=== PATIENT | female | born 1965 | race Caucasian/White ===

== ENCOUNTER 2022-08-22 20:44 | Inpatient (IN) | payer BC ==
--- OUTSIDE RECORDS SUMMARY | 2022-08-22 20:49 | XMS REPORT | Continuity of Care Document ---
:1965 Author Organization [facility] t Address [address] [place] [address] Care Team Providers Name Role Phone Dayan Dial MD Primary Care Physician [phone] [place] Attending Clinician Unavailable Lab, Ang - Db Attending Clinician Unavailable Dayan Dial MD Attending Clinician DAYAN DIAL Attending Clinician Unavailable [place] MD Attending Clinician Ca Graff Attending Clinician Payers Payer Name Policy Type Policy Number Effective Date Expiration Date S ource Problems Condition Condition Condition Status Onset Resolution Last Treating Co mments Source Name Details Category Date Date Treatment Clinician Date Nausea Nausea Disease Active Univers 9-13 ity of 00:00: [place] 00 Medical Branch Wheezing Wheezing Disease Active Unive rs 9-13 ity of 00:00: [place] 00 Medical Branch Cough Cough Disease Active Univers 9-13 ity of 00:00: [place] 00 Medical Branch Rectal Rectal Disease Active Overview: Univer s bleeding bleeding 8-24 Formattin ity of 00:00: g of this [place] 00 note Medical might be Branch different from the original. Added automatic ally from request for surgery [id number] Encounter Encounter Disease Active Overview: Univers for for - Formattin ity of screening screening 00:00: [place] colonoscop colonoscop 00 note Me dical y y might be Branch different from the original. 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 Branch Arteritis Arteritis Disease Active 2012-11 Uni vers 18 ity of 00:00: [place] [facility] Branch No known No known Disease Metho di active active st problems problems Hospit a l Bronchitis Bronchitis Disease Resolve 2014-112018-02-16 2018-02-17 Univers d 2- 00:00:00 02:26:46 ity of 00:00: [place] [facility] Branch Acute Acute Disease Resolve 2014-112018-02-16 2018-02-17 Univers sinusitis, sinusitis, d 2-21 00:00:00 02:26:38 [place] recurrence [place] 00 Medical specified, specified, Br anch unspecifie unspecifie d location d location Allergies, Adverse Reactions, Alerts Allergy Allergy Status Severity Reaction(s) Onset Inactive Treating Comm ents Source Name Type Date Date Clinician No Known DA Active U [facility] Allergie 5-03 Marlynlan s 00:00: d 00 Medical Senath NO KNOWN Drug Active Univers ALLERGIE Class ity of S [facility] Family History Family Member Diagnosis Comments Start Date Stop Date Source Natural brother Thyroid cancer [facility] Natural father Bladder Cancer Method ist [facility] mother [facility] Natural sister [facility] Social History Social Habit Start Date Stop Date Quantity Comments Source Exposure to 2022-08-07 2022-08-17 Not sure University SARS-CoV-2 (event) 00:00:00 08:56:00 [facility] Tobacco use and 2022-08-17 2022-08-17 Smokeless tobacco Un iversity of exposure 00:00:00 00:00:00 non-user [facility] Cigarettes smoked 2022-08-17 2022-08-17 Univers ity of current (pack per 00:00:00 00:00:00 ) - Reported Branch Cigarette 2022-08-17 2022-08-17 University of pack-years 00:00:00 00:00:00 [facility] Tobacco Comment 2022-06-17 2022-06-17 Occasional smoker Un iversity of 00:00:00 00:00:00 [facility] Alcohol intake 2018-08-09 2018-08-09 Current [facility] 00:[facility] 00:[facility]:00 non-drinker of Hospital alcohol (finding) History of tobacco 2012-08-24 Cigarette Smoker University of use 00:00:00 [facility] Sex Ass[birth year] At [birth year] [facility] Smoking Status Start Date Stop Date Source Smokes tobacco daily 2022-08-17 00:00:00 Univers ity of [facility] Ex-smoker 2022-06-17 00:00:00 2022-06-17 00:00:00 Universi ty of [facility] Medications Ordered Filled Start Stop Current Ordering Indication Dosage Frequency Signature Comments Components Source Medication Medication Date Date Medication? Clinician (SIG) Name Name linaCLOtide Yes [id number] 145ug Take 1 Univers (LINZESS) 9-22 capsule by ity of 145 mcg 00:00: mouth in [place] capsule 00 the Medical morning. Branch linaCLOtide Yes [id number] 145ug Take 1 Univers (LINZESS) 9-22 capsule by ity of 145 mcg 00:00: mouth in [place] capsule the Medical morning. Branch linaCLOtide Yes [id number] 145ug Take 1 Univers (LINZESS) 9-22 capsule by ity of 145 mcg 00:00: mouth in [place] capsule the Medical morning. Branch linaCLOtide Yes [id number] 145ug Take 1 Univers (LINZESS) 9-22 capsule by ity of 145 mcg 00:00: mouth in [place] capsule 00 the Medical morning. Branch linaCLOtide Yes [id number] 145ug Take 1 Univers (LINZESS) 9-22 capsule by ity of 145 mcg 00:00: mouth in [place] capsule 00 the Medical morning. Branch linaCLOtide Yes [id number] 145ug Take 1 Univers (LINZESS) 9-22 capsule by ity of 145 mcg 00:00: mouth in [place] capsule 00 the Medical morning. Branch linaCLOtide Yes [id number] 145ug Take 1 Univers (LINZESS) 9-22 capsule by ity of 145 mcg 00:00: mouth in [place] capsule 00 the Medical morning. Branch VENLAFAXINE Yes [id number] TAKE 1 Univers XR 150 mg 9-21 CAPSULE BY ity of 24 hr 00:00: MOUTH ONCE [place] capsule 00 DAILY WITH Medica l BREAKFAST Branch ESTRADIOL 1 Yes [id number] Take 1 Univers mg tablet 9-21 tablet by ity o f 00:00: mouth once [place] 00 daily Medical Branch NAPROXEN 2021-0 Yes [id number] Take 1 Uni vers 500 mg 9-21 tablet by ity of tablet 00:00: mouth 00 twice Medical daily Branch VENLAFAXINE Yes [id number] TAKE 1 Univers XR 150 mg 9-21 CAPSULE BY ity of 24 hr 00:00: MOUTH ONCE [place] capsule 00 DAILY WITH Medica l BREAKFAST Branch ESTRADIOL 1 Yes [id number] Take 1 Univers mg tablet 9-21 tablet by ity o f 00:00: mouth once [place] 00 daily Medical Branch NAPROXEN 2021-0 Yes [id number] Take 1 Uni vers 500 mg 9-21 tablet by ity of tablet 00:00: mouth 00 twice Medical daily Branch VENLAFAXINE 2021-0 Yes [id number] TAKE 1 Univers XR 150 mg 9-21 CAPSULE BY ity of 24 hr 00:00: MOUTH ONCE [place] capsule 00 DAILY WITH Medica l BREAKFAST Branch ESTRADIOL 1 2021- Yes [id number] Take 1 Univers mg tablet 9-21 tablet by ity o f 00:00: mouth once [place] 00 daily Medical Branch NAPROXEN 2021-0 Yes [id number] Take 1 Uni vers 500 mg 9-21 tablet by ity of tablet 00:00: mouth [place] 00 twice Medical daily Branch VENLAFAXINE 2021-0 Yes [id number] TAKE 1 Univers XR 150 mg 9-21 CAPSULE BY ity of 24 hr 00:00: MOUTH ONCE [place] capsule 00 DAILY WITH Medica l BREAKFAST Branch ESTRADIOL 1 2021-0 Yes [id number] Take 1 Univers mg tablet 9-21 tablet by ity o f 00:00: mouth once [place] daily Medical Branch NAPROXEN 2021-0 Yes [id number] Take 1 Uni vers 500 mg 9-21 tablet by ity of tablet 00:00: mouth twice Medical daily Branch VENLAFAXINE 2021-0 Yes [id number] TAKE 1 Univers XR 150 mg 9-21 CAPSULE BY ity of 24 hr 00:00: MOUTH ONCE [place] capsule 00 DAILY WITH [facility] ESTRADIOL 1 2021-0 Yes [id number] Take 1 Univers mg tablet 9-21 tablet by ity o f 00:00: mouth once daily Medical Branch NAPROXEN 2021-0 Yes [id number] Take 1 Uni vers 500 mg 9-21 tablet by ity of tablet 00:00: mouth twice Medical daily Branch VENLAFAXINE 2021-0 Yes [id number] TAKE 1 Univers XR 150 mg 9-21 CAPSULE BY ity of 24 hr 00:00: MOUTH ONCE [place] 00 DAILY WITH [facility] ESTRADIOL 1 2021-0 Yes [id number] Take 1 Univers mg tablet 9-21 tablet by ity o f 00:00: mouth once daily Medical Branch NAPROXEN 2021-0 Yes [id number] Take 1 Uni vers 500 mg 9-21 tablet by ity of tablet 00:00: mouth twice Medical daily Branch VENLAFAXINE 2021-0 Yes [id number] TAKE 1 Univers XR 150 mg 9-21 CAPSULE BY ity of 24 hr 00:00: MOUTH ONCE [place] 00 DAILY WITH [facility] ESTRADIOL 1 2021-0 Yes [id number] Take 1 Univers mg tablet 9-21 tablet by ity o f 00:00: mouth once daily Medical Branch NAPROXEN 2021-0 Yes [id number] Take 1 Uni vers 500 mg 9-21 tablet by ity of tablet 00:00: mouth twice Medical daily Branch VENLAFAXINE 2021-0 Yes [id number] TAKE 1 Univers XR 150 mg 9-21 CAPSULE BY ity of 24 hr 00:00: MOUTH ONCE [place] capsule 00 DAILY WITH [facility] ESTRADIOL 1 2021-0 Yes [id number] Take 1 Univers mg tablet 9-21 tablet by ity o f 00:00: mouth once [place] 00 daily Medical Branch NAPROXEN 2021-0 Yes [id number] Take 1 Uni vers 500 mg 9-21 tablet by ity of tablet 00:00: mouth [place] 00 twice Medical daily Branch azithromyci 2021-0 Yes [id number] Z-Ady = Univers n 250 mg 9-13 500mg day ity of tablet 00:00: 1, then [place] 00 250mg days Medical 2 to 5. Branch albuterol Yes [id number] 2{puff} Inhale 2 Univers 90 9-13 Puffs ity of mcg/actuati 00:00: every 6 [place] as on inhaler 00 (six) Medical hours as Branch needed for Wheezing or Shortness of Breath. azithromyci Yes [id number] Z-Ady = Univers n 250 mg 9-13 500mg day ity of tablet 00:00: 1, then [place] 00 250mg days Medical 2 to 5. Branch albuterol Yes [id number] 2{puff} Inhale 2 Univers 90 9-13 Puffs ity of mcg/actuati 00:00: every 6 [place] as on inhaler 00 (six) Medical hours as Branch needed for Wheezing or Shortness of Breath. azithromyci Yes [id number] Z-Ady = Univers n 250 mg 9-13 500mg day ity of tablet 00:00: 1, then [place] 00 250mg days Medical 2 to 5. Branch albuterol 2021- Yes [id number] 2{puff} Inhale 2 Univers 90 9-13 Puffs ity of mcg/actuati 00:00: every 6 [place] as on inhaler 00 (six) Medical hours as Branch needed for Wheezing or Shortness of Breath. azithromyci 2021- Yes [id number] Z-Ady = Univers n 250 mg 9-13 500mg day ity of tablet 00:00: 1, then [place] 00 250mg days Medical 2 to 5. Branch albuterol 2021-0 Yes [id number] 2{puff} Inhale 2 Univers 90 9-13 Puffs ity of mcg/actuati 00:00: every 6 [place] on inhaler 00 (six) Medical hours as Branch needed for Wheezing or Shortness of Breath. azithromyci 2021-0 Yes [id number] Z-Ady = Univers n 250 mg 9-13 500mg day ity of tablet 00:00: 1, then [place] 00 250mg days Medical 2 to 5. Branch albuterol 2021-0 Yes [id number] 2{puff} Inhale 2 Univers 90 9-13 Puffs ity of mcg/actuati 00:00: every 6 [place] as on inhaler 00 (six) Medical hours as Branch needed for Wheezing or Shortness of Breath. azithromyci 2021- Yes [id number] Z-Ady = Univers n 250 mg 9-13 500mg day ity of tablet 00:00: 1, then [place] 00 250mg days Medical 2 to 5. Branch albuterol 2021- Yes [id number] 2{puff} Inhale 2 Univers 90 9-13 Puffs ity of mcg/actuati 00:00: every 6 [place] as on inhaler 00 (six) Medical hours as Branch needed for Wheezing or Shortness of Breath. azithromyci 2021- Yes [id number] Z-Ady = Univers n 250 mg 9-13 500mg day ity of tablet 00:00: 1, then [place] 00 250mg days Medical 2 to 5. Branch albuterol 2021- Yes [id number] 2{puff} Inhale 2 Univers 90 9-13 Puffs ity of mcg/actuati 00:00: every 6 [place] as on inhaler 00 (six) Medical hours as Branch needed for Wheezing or Shortness of Breath. azithromyci 2021- Yes [id number] Z-Ady = Univers n 250 mg 9-13 500mg day ity of tablet 00:00: 1, then [place] 00 250mg days Medical 2 to 5. Branch albuterol 2021-0 Yes [id number] 2{puff} Inhale 2 Univers 90 9-13 Puffs ity of mcg/actuati 00:00: every 6 [place] as on inhaler 00 (six) Medical hours as Branch needed for Wheezing or Shortness of Breath. azithromyci 2021- Yes [id number] Z-Ady = Univers n 250 mg 9-13 500mg day ity of tablet 00:00: 1, then [place] 00 250mg days Medical 2 to 5. Branch albuterol 2021-0 Yes [id number] 2{puff} Inhale 2 Univers 90 9-13 Puffs ity of mcg/actuati 00:00: every 6 [place] on inhaler 00 (six) Medical hours as Branch needed for Wheezing or Shortness of Breath. azithromyci Yes [id number] Z-Ady = Univers n 250 mg 9-13 500mg day ity of tablet 00:00: 1, then [place] 00 250mg days Medical 2 to 5. Branch albuterol Yes [id number] 2{puff} Inhale 2 Univers 90 9-13 Puffs ity of mcg/actuati 00:00: every 6 [place] as on inhaler 00 (six) Medical hours as Branch needed for Wheezing or Shortness of Breath. bromphenira 2021- Yes [id number] 10mL Take 10 mL Univers mine-pseudo 08-03 by mouth 4 i ty of ephedrine-D 00:00: 04:59 (four) [place] M (BROMFED 00 :00 times Medical DM) 2-30-10 daily as Bran ch mg/5 mL needed for syrup Congestion /Allergies for up to 10 days. ondansetron 2021- Yes [id number] 4mg Take 1 Univers (ZOFRAN) 4 08-03 tablet by ity of mg tablet 00:00: 04:59 mouth [place] 00 :00 every 8 Medical (eight) Branch hours as needed for Nausea and Vomiting (N/V) for up to 10 days. bromphenira 2021- Yes [id number] 10mL Take 10 mL Univers mine-pseudo 08-03 by mouth 4 i ty of ephedrine-D 00:00: 04:59 (four) [place] M (BROMFED 00 :00 times Medical DM) 2-30-10 daily as Bran ch mg/5 mL needed for syrup Congestion /Allergies for up to 10 days. ondansetron 2021- Yes [id number] 4mg Take 1 Univers (ZOFRAN) 4 08-03 tablet by ity of mg tablet 00:00: 04:59 mouth [place] 00 :00 every 8 Medical (eight) Branch hours as needed for Nausea and Vomiting (N/V) for up to 10 days. bromphenira 2021- Yes [id number] 10mL Take 10 mL Univers mine-pseudo 08-03 by mouth 4 i ty of ephedrine-D 00:00: 04:59 (four) [place] M (BROMFED 00 :00 times Medical DM) 2-30-10 daily as Bran ch mg/5 mL needed for syrup Congestion /Allergies for up to 10 days. ondansetron 2021- Yes [id number] 4mg Take 1 Univers (ZOFRAN) 4 08-03 tablet by ity of mg tablet 00:00: 04:59 mouth [place] 00 :00 every 8 Medical (eight) Branch hours as needed for Nausea and Vomiting (N/V) for up to 10 days. bromphenira 2021- Yes [id number] 10mL Take 10 mL Univers mine-pseudo 08-03 by mouth 4 i ty of ephedrine-D 00:00: 04:59 (four) [place] M (BROMFED 00 :00 times Medical DM) 2-30-10 daily as Bran ch mg/5 mL needed for syrup Congestion /Allergies for up to 10 days. ondansetron 2021- Yes [id number] 4mg Take 1 Univers (ZOFRAN) 4 08-03 tablet by ity of mg tablet 00:00: 04:59 mouth [place] 00 :00 every 8 Medical (eight) Branch hours as needed for Nausea and Vomiting (N/V) for up to 10 days. bromphenira 2021- Yes [id number] 10mL Take 10 mL Univers mine-pseudo 08-03 by mouth 4 i ty of ephedrine-D 00:00: 04:59 (four) [place] M (BROMFED 00 :00 times Medical DM) 2-30-10 daily as Bran ch mg/5 mL needed for syrup Congestion /Allergies for up to 10 days. ondansetron 2021-2021- Yes [id number] 4mg Take 1 Univers (ZOFRAN) 4 08-03 tablet by ity of mg tablet 00:00: 04:59 mouth [place] 00 :00 every 8 Medical (eight) Branch hours as needed for Nausea and Vomiting (N/V) for up to 10 days. bromphenira 2021- Yes [id number] 10mL Take 10 mL Univers mine-pseudo 08-03 by mouth 4 i ty of ephedrine-D 00:00: 04:59 (four) [place] M (BROMFED 00 :00 times Medical DM) 2-30-10 daily as Bran ch mg/5 mL needed for syrup Congestion /Allergies for up to 10 days. ondansetron 2021- Yes [id number] 4mg Take 1 Univers (ZOFRAN) 4 08-03 tablet by ity of mg tablet 00:00: 04:59 mouth [place] 00 :00 every 8 Medical (eight) Branch hours as needed for Nausea and Vomiting (N/V) for up to 10 days. ketorolac 2021- Yes [id number] 10mg Take 1 U nivers 10 mg 07-28 tablet by ity of tablet 00:00: 04:59 mouth [place] 00 :00 every 6 Medical (six) Branch hours as needed for Alternate with [place] for pain scale 1-3 for up to 14 days. docusate 2021- Yes [id number] 100mg Take 1 U nivers 100 mg 07-28 capsule by ity of capsule 00:00: 04:59 mouth in [place] 00 :00 the Medical morning Branch for 14 days. proMETHazin 2021- Yes [id number] 25mg Take 1 Univers e 25 mg 07-28 tablet by ity of tablet 00:00: 04:59 mouth [place] 00 :00 every 6 Medical (six) Branch hours as needed for Nausea and Vomiting (N/V) for up to 14 days. ketorolac 2021- Yes [id number] 10mg Take 1 U nivers 10 mg 07-28 tablet by ity of tablet 00:00: 04:59 mouth [place] 00 :00 every 6 Medical (six) Branch hours as needed for Alternate with [place] for pain scale 1-3 for up to 14 days. docusate 2021- Yes [id number] 100mg Take 1 U nivers 100 mg 07-28 capsule by ity of capsule 00:00: 04:59 mouth in [place] 00 :00 the Medical morning Branch for 14 days. proMETHazin 2021- Yes [id number] 25mg Take 1 Univers e 25 mg 07-28 tablet by ity of tablet 00:00: 04:59 mouth [place] 00 :00 every 6 Medical (six) Branch hours as needed for Nausea and Vomiting (N/V) for up to 14 days. ketorolac 2021- Yes [id number] 10mg Take 1 U nivers 10 mg 07-28 tablet by ity of tablet 00:00: 04:59 mouth [place] 00 :00 every 6 Medical (six) Branch hours as needed for Alternate with [place] for pain scale 1-3 for up to 14 days. docusate 2021- Yes [id number] 100mg Take 1 U nivers 100 mg 07-28 capsule by ity of capsule 00:00: 04:59 mouth in [place] 00 :00 the Medical morning Branch for 14 days. proMETHazin 2021- Yes [id number] 25mg Take 1 Univers e 25 mg 07-28 tablet by ity of tablet 00:00: 04:59 mouth [place] 00 :00 every 6 Medical (six) Branch hours as needed for Nausea and Vomiting (N/V) for up to 14 days. HYDROcodone 2021- Yes [id number] 2{tbl} Take 2 U nivers -acetaminop 07-28-15 tablets by i ty of hen (NORCO) 00:00: 04:59 [place] 5-325 mg 00 :00 every 6 Medical tablet (six) Branch hours as needed for Pain (scale 7-10) for up to 7 days. Indication s: acute pain HYDROcodone 2021- Yes [id number] 2{tbl} Take 2 U nivers -acetaminop 07-28-15 tablets by i ty of hen (NORCO) 00:00: 04:59 mouth [place] 5-325 mg 00 :00 every 6 Medical tablet (six) Branch hours as needed for Pain (scale 7-10) for up to 7 days. Indication s: acute pain NAPROXEN Yes [id number] Take 1 Uni vers 500 mg 8-23 tablet by ity of tablet 00:00: mouth [place] 00 twice Medical daily Branch linaCLOtide Yes [id number] 145ug Take 1 Univers (LINZESS) 8-23 capsule by ity of 145 mcg 00:00: mouth in [place] capsule 00 the Medical morning. Branch NAPROXEN 2021-0 Yes [id number] Take 1 Uni vers 500 mg 8-23 tablet by ity of tablet 00:00: mouth [place] 00 twice Medical daily Branch linaCLOtide 2021-0 Yes [id number] 145ug Take 1 Univers (LINZESS) 8-23 capsule by ity of 145 mcg 00:00: mouth in [place] capsule 00 the Medical morning. Branch linaCLOtide 2021-0 Yes [id number] 145ug Take 1 Univers (LINZESS) 8-23 capsule by ity of 145 mcg 00:00: mouth in [place] capsule 00 the Medical morning. Branch linaCLOtide 2021-0 Yes [id number] 145ug Take 1 Univers (LINZESS) 8-23 capsule by ity of 145 mcg 00:00: mouth in [place] capsule 00 the Medical morning. Branch linaCLOtide 2021-0 Yes [id number] 145ug Take 1 Univers (LINZESS) 8-23 capsule by ity of 145 mcg 00:00: mouth in [place] capsule 00 the Medical morning. Branch linaCLOtide 2021-0 Yes [id number] 145ug Take 1 Univers (LINZESS) 8-23 capsule by ity of 145 mcg 00:00: mouth in [place] capsule 00 the Medical morning. Branch linaCLOtide 2021-0 Yes [id number] 145ug Take 1 Univers (LINZESS) 8-23 capsule by ity of 145 mcg 00:00: mouth in [place] capsule 00 the Medical morning. Branch linaCLOtide 2021-0 Yes [id number] 145ug Take 1 Univers (LINZESS) 8-23 capsule by ity of 145 mcg 00:00: mouth in [place] capsule 00 the Medical morning. Branch linaCLOtide 2021-0 Yes [id number] 145ug Take 1 Univers (LINZESS) 8-23 capsule by ity of 145 mcg 00:00: mouth in [place] capsule 00 the Medical morning. Branch linaCLOtide 2021-0 Yes [id number] 145ug Take 1 Univers (LINZESS) 8-23 capsule by ity of 145 mcg 00:00: mouth in [place] capsule 00 the Medical morning. Branch NAPROXEN 2021-0 2021- No [id number] Take 1 Un ger[place] 500 mg 8-23 -21 tablet by ity of tablet 00:00: 00:00 mouth 00 :00 twice Medical daily Branch ALPRAZOLAM 0 Yes [id number] TAKE 1 U nivers 0.5 mg 8-17 TABLET BY ity of tablet 00:00: MOUTH THREE Medical TIMES Branch DAILY ALPRAZOLAM 0 Yes [id number] TAKE 1 U nivers 0.5 mg 8-17 TABLET BY ity of tablet 00:00: THREE Medical TIMES Branch DAILY ALPRAZOLAM 0 Yes [id number] TAKE 1 U nivers 0.5 mg 8-17 TABLET BY ity of tablet 00:00: MOUTH THREE Medical TIMES Branch DAILY ALPRAZOLAM Yes [id number] TAKE 1 U nivers 0.5 mg 8-17 TABLET BY ity of tablet 00:00: MOUTH THREE Medical TIMES Branch DAILY ALPRAZOLAM 0 Yes [id number] TAKE 1 U nivers 0.5 mg 8-17 TABLET BY ity of tablet 00:00: THREE Medical TIMES Branch DAILY ALPRAZOLAM 0 Yes [id number] TAKE 1 U nivers 0.5 mg 8-17 TABLET BY ity of tablet 00:00: MOUTH THREE Medical TIMES Branch DAILY ALPRAZOLAM 0 Yes [id number] TAKE 1 U nivers 0.5 mg 8-17 TABLET BY ity of tablet 00:00: MOUTH THREE Medical TIMES Branch DAILY ALPRAZOLAM 0 Yes [id number] TAKE 1 U nivers 0.5 mg 8-17 TABLET BY ity of tablet 00:00: THREE Medical TIMES Branch DAILY ALPRAZOLAM 0 Yes [id number] TAKE 1 U nivers 0.5 mg 8-17 TABLET BY ity of tablet 00:00: MOUTH THREE Medical TIMES Branch DAILY ALPRAZOLAM 0 Yes [id number] TAKE 1 U nivers 0.5 mg 8-17 TABLET BY ity of tablet 00:00: MOUTH THREE Medical TIMES Branch DAILY EUTHYROX 25 2021-0 Yes [id number] TAKE 1 Univers mcg tablet 7-12 TABLET BY ity of 00:00: MOUTH 00 DAILY IN Medical THE Branch MORNING EUTHYROX 25 2021-0 Yes [id number] TAKE 1 Univers mcg tablet 7-12 TABLET BY ity of 00:00: MOUTH ONCE [place] 00 DAILY IN [facility] MORNING EUTHYROX 25 2021-0 Yes [id number] TAKE 1 Univers mcg tablet 7-12 TABLET BY ity of 00:00: MOUTH ONCE [place] 00 DAILY IN [facility] MORNING EUTHYROX 25 2021-0 Yes [id number] TAKE 1 Univers mcg tablet 7-12 TABLET BY ity of 00:00: MOUTH ONCE [place] 00 DAILY IN [facility] MORNING EUTHYROX 25 2021-0 Yes [id number] TAKE 1 Univers mcg tablet 7-12 TABLET BY ity of 00:00: MOUTH ONCE [place] 00 DAILY IN [facility] MORNING EUTHYROX 25 2021-0 Yes [id number] TAKE 1 Univers mcg tablet 7-12 TABLET BY ity of 00:00: MOUTH ONCE [place] 00 DAILY IN [facility] MORNING EUTHYROX 25 2021-0 Yes [id number] TAKE 1 Univers mcg tablet 7-12 TABLET BY ity of 00:00: MOUTH ONCE [place] 00 DAILY IN [facility] MORNING EUTHYROX 25 2021-0 Yes [id number] TAKE 1 Univers mcg tablet 7-12 TABLET BY ity of 00:00: MOUTH ONCE [place] 00 DAILY IN [facility] MORNING EUTHYROX 25 2021-0 Yes [id number] TAKE 1 Univers mcg tablet 7-12 TABLET BY ity of 00:00: MOUTH ONCE [place] 00 DAILY IN [facility] MORNING EUTHYROX 25 2021-0 Yes [id number] TAKE 1 Univers mcg tablet 7-12 TABLET BY ity of 00:00: MOUTH ONCE [place] 00 DAILY IN [facility] MORNING VENLAFAXINE 2021-0 Yes [id number] TAKE 1 Univers XR 150 mg 6-27 CAPSULE BY ity of 24 hr 00:00: MOUTH ONCE [place] capsule 00 DAILY WITH Medica l BREAKFAST [place] ESTRADIOL 1 2021-0 Yes [id number] Take 1 Univers mg tablet 6-27 tablet by ity o f 00:00: mouth once [place] 00 daily [facility] VENLAFAXINE 2021-0 Yes [id number] TAKE 1 Univers XR 150 mg 6-27 CAPSULE BY ity of 24 hr 00:00: MOUTH ONCE [place] capsule 00 DAILY WITH Medica l BREAKFAST [place] ESTRADIOL 1 2021-0 Yes [id number] Take 1 Univers mg tablet 6-27 tablet by ity o f 00:00: mouth once [place] 00 daily [facility] VENLAFAXINE 2021-0 2021- No [id number] TAKE 1 Univers XR 150 mg 05-17 CAPSULE BY ity of 24 hr 00:00: 00:00 MOUTH ONCE [place] capsule 00 :00 DAILY WITH Medica l BREAKFAST Branch ESTRADIOL 1 2021- No [id number] Take 1 Univers mg tablet 05-17 tablet by ity of 00:00: 00:00 mouth once [place] 00 :00 daily Medical Branch lisinopriL 0 Yes [id number] 40mg Take 1 U nivers 40 mg 3-09 tablet by ity of tablet 00:00: mouth [place] 00 daily. Medical Branch lisinopriL 0 Yes [id number] 40mg Take 1 U nivers 40 mg 3-09 tablet by ity of tablet 00:00: mouth [place] 00 daily. Medical Branch lisinopriL 0 Yes [id number] 40mg Take 1 U nivers 40 mg 3-09 tablet by ity of tablet 00:00: mouth [place] 00 daily. Medical Branch lisinopriL 0 Yes [id number] 40mg Take 1 U nivers 40 mg 3-09 tablet by ity of tablet 00:00: mouth [place] 00 daily. Medical Branch lisinopriL 0 Yes [id number] 40mg Take 1 U nivers 40 mg 3-09 tablet by ity of tablet 00:00: mouth [place] 00 daily. Medical Branch lisinopriL 0 Yes [id number] 40mg Take 1 U nivers 40 mg 3-09 tablet by ity of tablet 00:00: mouth [place] 00 daily. [facility] Branch lisinopriL 0 Yes [id number] 40mg Take 1 U nivers 40 mg 3-09 tablet by ity of tablet 00:00: mouth [place] 00 daily. Medical Branch lisinopriL 0 Yes [id number] 40mg Take 1 U nivers 40 mg 3-09 tablet by ity of tablet 00:00: mouth [place] 00 daily. Medical Branch lisinopriL 2021-0 Yes [id number] 40mg Take 1 U nivers 40 mg 3-09 tablet by ity of tablet 00:00: mouth [place] 00 daily. Medical Branch lisinopriL 2021-0 Yes [id number] 40mg Take 1 U nivers 40 mg 3-09 tablet by ity of tablet 00:00: mouth [place] 00 daily. Medical Branch azithromyci Yes Cough 500mg Take 1 Un gerardo n 500 mg 5-07 tablet by ity of tablet 00:00: mouth [place] 00 daily. Medical Branch azithromyci Yes Cough 500mg Take 1 Un gerardo n 500 mg 5-07 tablet by ity of tablet 00:00: mouth [place] 00 daily. Medical Branch levothyroxi Yes Hypothyroid 25ug Take 1 Univers ne 25 mcg 3-16 ism, tablet by ity o f tablet 00:00: unspecified mouth Berny as 00 type every Medical morning. Branch ALPRAZolam Yes Anxiety TAKE 1 Un gerardo 0.5 mg 3-16 TABLET BY ity of tablet 00:00: MOUTH [place] 00 THREE Medical TIMES Branch DAILY estradioL 1 Yes Menopausal 1mg Take 1 Univers mg tablet 3-16 state tablet by ity of 00:00: mouth [place] 00 daily. Medical Branch venlafaxine Yes Depression, TAKE 1 Univers XR 150 mg 3-16 unspecified CAPSULE BY ity of 24 hr 00:00: depression MOUTH ONCE [place] capsule 00 type DAILY WITH Medica l BREAKFAST Branch naproxen Yes Neck pain 500mg Take 1 U nivers 500 mg 3-16 tablet by ity of tablet 00:00: mouth 2 (two) Medical times Branch daily. levothyroxi Yes Hypothyroid 25ug Take 1 Univers ne 25 mcg 3-16 ism, tablet by ity o f tablet 00:00: unspecified mouth Berny as 00 type every Medical morning. Branch ALPRAZolam Yes Anxiety TAKE 1 Un gerardo 0.5 mg 3-16 TABLET BY ity of tablet 00:00: MOUTH [place] 00 THREE Medical TIMES Branch DAILY estradioL 1 Yes Menopausal 1mg Take 1 Univers mg tablet 3-16 state tablet by ity of 00:00: mouth [place] 00 daily. Medical Branch venlafaxine Yes Depression, TAKE 1 Univers XR 150 mg 3-16 unspecified CAPSULE BY ity of 24 hr 00:00: depression MOUTH ONCE [place] capsule 00 type DAILY WITH Medica l BREAKFAST Branch naproxen Yes Neck pain 500mg Take 1 U nivers 500 mg 3-16 tablet by ity of tablet 00:00: mouth 2 [place] 00 (two) Medical times Branch daily. naproxen 2018-0 Yes 500mg Q.5D Take 500 Meth humble (NAPROSYN) 9-[address] 500 MG 13:48: mouth 2 Hosp[facility] tablet 54 (two) l times a day with meals. levothyroxi 2018-0 Yes 25ug QD Take 25 Met hodi ne 9-[address] (SYNTHROID, 13:48: mouth Hospi ta LEVOXYL) 25 54 every l mcg tablet morning. traMADol 2017- Yes 50mg Q6H Take 50 mg Met hodi (ULTRAM) 50 -[address] mg tablet 13:48: every 6 Hospi ta 54 (six) l hours as needed for moderate pain. citalopram Yes 10mg QD Take 10 mg M ethodi (CeleXA) 10 08-[address] MG tablet 13:48: daily. Hospit [facility] 54 l Immunizations Ordered Filled Immunization Date Status Comments [facility] Immunization Name Name Zoster(Zostavax)( 2021-10-20 Completed Unive rsity of ingles) 00:00:00 [facility] Zoster(Zostavax)( 2021-10-20 Completed Unive rsity of ingles) 00:00:00 [facility] Zoster(Zostavax)( 2021-10-20 Completed Unive rsity of ingles) 00:00:00 [facility] Zoster(Zostavax)( 2021-10-20 Completed Unive rsity of ingles) 00:00:00 [facility] Zoster(Zostavax)( 2021-10-20 Completed Unive rsity of ingles) 00:00:00 [facility] Zoster(Zostavax)( 2021-10-20 Completed Unive rsity of ingles) 00:00:00 [facility] Zoster(Zostavax)( 2021-10-20 Completed Unive rsity of ingles) 00:00:00 [facility] Zoster(Zostavax)( 2021-10-20 Completed Unive rsity of ingles) 00:00:00 [facility] Zoster(Zostavax)( 2021-10-20 Completed Unive rsity of ingles) 00:00:00 [facility] Zoster(Zostavax)(Sh 2021-10-20 Completed Unive rsity of ingles) 00:00:00 [facility] SARS-COV-2 COVID-19 2021-03-04 Completed Unive rsity of PFIZER VACCINE 00:00:00 [facility] [place] [facility] SARS-COV-2 COVID-19 2021-03-04 Completed Unive rsity of PFIZER VACCINE 00:00:00 [facility] [place] [facility] SARS-COV-2 COVID-19 2021-03-04 Completed Unive rsity of PFIZER VACCINE 00:00:00 [facility] [place] [facility] SARS-COV-2 COVID-19 2021-03-04 Completed Unive rsity of PFIZER VACCINE 00:00:00 [facility] Branch SARS-COV-2 COVID-19 2021-03-04 Completed Unive rsity of PFIZER VACCINE 00:00:00 [facility] [place] [facility] SARS-COV-2 COVID-19 2021-03-04 Completed Unive rsity of PFIZER VACCINE 00:00:00 [facility] [place] [facility] SARS-COV-2 COVID-19 2021-03-04 Completed Unive rsity of PFIZER VACCINE 00:00:00 [facility] [place] [facility] SARS-COV-2 COVID-19 2021-03-04 Completed Unive rsity of PFIZER VACCINE 00:00:00 [facility] Branch SARS-COV-2 COVID-19 2021-03-04 Completed Unive rsity of PFIZER VACCINE 00:00:00 [facility] [place] [facility] SARS-COV-2 COVID-19 2021-03-04 Completed Unive rsity of PFIZER VACCINE 00:00:00 [facility] [place] [facility] SARS-COV-2 COVID-19 2021-03-04 Completed Unive rsity of PFIZER VACCINE 00:00:00 [facility] [place] [facility] SARS-COV-2 COVID-19 2021-03-04 Completed Unive rsity of PFIZER VACCINE 00:00:00 [facility] [place] [facility] SARS-COV-2 COVID-19 2021-02-05 Completed Unive rsity of PFIZER VACCINE 00:00:00 [facility] [place] [facility] SARS-COV-2 COVID-19 2021-02-05 Completed Unive rsity of PFIZER VACCINE 00:00:00 [facility] [place] [facility] SARS-COV-2 COVID-19 2021-02-05 Completed Unive rsity of PFIZER VACCINE 00:00:00 [facility] [place] [facility] SARS-COV-2 COVID-19 2021-02-05 Completed Unive rsity of PFIZER VACCINE 00:00:00 [facility] [place] [facility] SARS-COV-2 COVID-19 2021-02-05 Completed Unive rsity of PFIZER VACCINE 00:00:00 [facility] [place] [facility] SARS-COV-2 COVID-19 2021-02-05 Completed Unive rsity of PFIZER VACCINE 00:00:00 [facility] [place] [facility] SARS-COV-2 COVID-19 2021-02-05 Completed Unive rsity of PFIZER VACCINE 00:00:00 [facility] [place] [facility] SARS-COV-2 COVID-19 2021-02-05 Completed Unive rsity of PFIZER VACCINE 00:00:00 [facility] [place] [facility] SARS-COV-2 COVID-19 2021-02-05 Completed Unive rsity of PFIZER VACCINE 00:00:00 [facility] [place] [facility] SARS-COV-2 COVID-19 2021-02-05 Completed Unive rsity of PFIZER VACCINE 00:00:00 [facility] [place] [facility] SARS-COV-2 COVID-19 2021-02-05 Completed Unive rsity of PFIZER VACCINE 00:00:00 [facility] [place] [facility] SARS-COV-2 COVID-19 2021-02-05 Completed Unive rsity of PFIZER VACCINE 00:00:00 [facility] [place] [facility] Zoster Vaccine 2020-09-12 Completed University of Recombinant 00:00:00 [facility] Influenza Virus 2020-09-12 Completed Universit y of Vaccine Recomb Quad 00:00:00 [place] [facility] IM, Preserv and ABX Branc h Free 18-64 YRS Zoster Vaccine 2020-09-12 Completed University of Recombinant 00:00:00 [facility] Influenza Virus 2020-09-12 Completed Universit y of Vaccine Recomb Quad 00:00:00 [place] [facility] IM, Preserv and ABX Branc h Free 18-64 YRS Zoster Vaccine 2020-09-12 Completed University of Recombinant 00:00:00 [facility] Influenza Virus 2020-09-12 Completed Universit y of Vaccine Recomb Quad 00:00:00 [place] [facility] IM, Preserv and ABX Branc h Free 18-64 YRS Zoster Vaccine 2020-09-12 Completed University of Recombinant 00:00:00 [facility] Influenza Virus 2020-09-12 Completed Universit y of Vaccine Recomb Quad 00:00:00 [place] [facility] IM, Preserv and ABX Branc h Free 18-64 YRS Zoster Vaccine 2020-09-12 Completed University of Recombinant 00:00:00 [facility] Influenza Virus 2020-09-12 Completed Universit y of Vaccine Recomb Quad 00:00:00 [place] [facility] IM, Preserv and ABX Branc h Free 18-64 YRS Zoster Vaccine 2020-09-12 Completed University of Recombinant 00:00:00 [facility] Influenza Virus 2020-09-12 Completed Universit y of Vaccine Recomb Quad 00:00:00 [place] [facility] IM, Preserv and ABX Branc h Free 18-64 YRS Zoster Vaccine 2020-09-12 Completed University of Recombinant 00:00:00 [facility] Influenza Virus 2020-09-12 Completed Universit y of Vaccine Recomb Quad 00:00:00 [place] [facility] IM, Preserv and ABX Branc h Free 18-64 YRS Zoster Vaccine 2020-09-12 Completed University of Recombinant 00:00:00 [facility] Influenza Virus 2020-09-12 Completed Universit y of Vaccine Recomb Quad 00:00:00 [place] [facility] IM, Preserv and ABX Branc h Free 18-64 YRS Zoster Vaccine 2020-09-12 Completed University of Recombinant 00:00:00 [facility] Influenza Virus 2020-09-12 Completed Universit y of Vaccine Recomb Quad 00:00:00 [place] [facility] IM, Preserv and ABX Branc h Free 18-64 YRS Zoster Vaccine 2020-09-12 Completed University of Recombinant 00:00:00 [facility] Influenza Virus 2020-09-12 Completed Universit y of Vaccine Recomb Quad 00:00:00 [place] [facility] IM, Preserv and ABX Branc h Free 18-64 YRS Vital Signs Vital Name Observation Time Observation Value Comments Source Systolic blood 2022-08-17 14:04:00 122 mm[Hg] Univer sity of pressure [facility] Diastolic blood 2022-08-17 14:04:00 64 mm[Hg] Unive rsity of pressure [facility] Heart rate 2022-08-17 14:04:00 78 /min [facility] Body temperature 2022-08-17 14:04:00 [facility] 2022-08-17 14:04:00 180.3 cm [facility] Body weight 2022-08-17 14:04:00 81.647 kg [facility] [place] [facility] BMI 2022-08-17 14:04:00 25.10 kg/m2 [facility] [place] [facility] Systolic blood 2022-08-12 20:44:00 120 mm[Hg] Univer sity of pressure [place] [facility] Diastolic blood 2022-08-12 20:44:00 64 mm[Hg] Unive rsity of pressure [facility] Heart rate 2022-08-12 20:44:00 79 /min [facility] [place] [facility] Body height 2022-08-12 20:44:00 180.3 cm [facility] [place] [facility] Body weight 2022-08-12 20:44:00 80.922 kg [facility] [place] [facility] BMI 2022-08-12 20:44:00 24.88 kg/m2 [facility] [place] [facility] Oxygen saturation in 2022-08-12 20:44:00 99 /min University of Arterial blood by [employer] Pulse oximetry Branch Systolic blood 2022-08-03 20:39:00 121 mm[Hg] Univer sity of pressure [place] [facility] Diastolic blood 2022-08-03 20:39:00 64 mm[Hg] Unive rsity of pressure [facility] Heart rate 2022-08-03 20:39:00 67 /min [facility] [place] [facility] Body temperature 2022-08-03 20:39:00 37.06 Darleen Univ ersity of [facility] Body height 2022-08-03 20:39:00 180.3 cm [facility] [place] [facility] Body weight 2022-08-03 20:39:00 82.509 kg [facility] [place] [facility] BMI 2022-08-03 20:39:00 25.37 kg/m2 [facility] [place] [facility] Oxygen saturation in 2022-08-03 20:39:00 100 /min University of Arterial blood by [employer] Pulse oximetry Branch Procedures This patient has no known procedures. Plan of Care Planned Activity Planned Date Details Comments Source Future Scheduled 2029-02-02 Screening for [facility] [place] Test 00:00:00 malignant neoplasm of Medica l Branch colon (procedure) [code = 057114020] Future Scheduled 2029-02-02 Screening for [facility] [place] Test 00:00:00 malignant neoplasm of Medica l Branch colon (procedure) [code = 088615086] Future Scheduled 2029-02-02 Screening for [facility] Test 00:00:00 malignant neoplasm of Medica l Branch colon (procedure) [code = 812560804] Future Scheduled 2029-02-02 Screening for [facility] Test 00:00:00 malignant neoplasm of Medica l Branch colon (procedure) [code = 717538513] Future Scheduled 2022-07-27 HEPATITIS B VACCINES Met [facility] Test 13:11:17 (1 of 3 - 3-dose series) [code = HEPATITIS B VACCINES (1 of 3 - 3-dose series)] Future Scheduled 2022-07-27 COVID-19 VACCINE (#1) [facility] Test 13:11:17 [code = COVID-19 VACCINE (#1)] Future Scheduled 2022-07-27 Screening for [facility] Test 13:11:17 malignant neoplasm of cervix (procedure) [code = 413372871] Future Scheduled 2022-07-27 BREAST CANCER [facility] Test 13:11:17 SCREENING [code = BREAST CANCER SCREENING] Future Scheduled 2022-07-27 COLONOSCOPY SCREENING [facility] Test 13:11:17 [code = COLONOSCOPY SCREENING] Future Scheduled 2022-07-27 SHINGLES VACCINES (1 Met [facility] Test 13:11:17 of 2) [code = SHINGLES VACCINES (1 of 2)] Future Scheduled 2022-07-27 INFLUENZA VACCINE Method [facility] Test 13:11:17 [code = INFLUENZA VACCINE] Future Scheduled 2021-07-22 INFLUENZA VACCINE [facility] Test 00:00:00 (Season Ended) [code = Medic al Branch INFLUENZA VACCINE (Season Ended)] Future Scheduled 2021-07-22 [facility] (Season Ended) [code = Medic al Branch INFLUENZA VACCINE (Season Ended)] Future Scheduled 2019-08-16 Screening for [facility] Test 00:00:00 malignant neoplasm of Medica l Branch breast (procedure) [code = 168158576] Future Scheduled 2019-08-16 Screening for [facility] Test 00:00:00 malignant neoplasm of Medica l Branch breast (procedure) [code = 810021360] Future Scheduled 2018 Screening for University [facility] Test 00:00:00 malignant neoplasm of Medica l Branch lung (procedure) [code = 076762284] Future Scheduled 2018 Screening for University [facility] Test 00:00:00 malignant neoplasm of Medica l Branch lung (procedure) [code = 346194353] Future Scheduled 2013 Screening for occult [facility] [place] Test 00:00:00 blood in feces Medical Branc h (procedure) [code = 775073147] Future Scheduled 2013 Stool DNA-based Universi ty [facility] Test 00:00:00 colorectal cancer Medical Br anch screening (procedure) [code = 661618807061536] Future Scheduled 2013 [facility] sigmoidoscopy Medical Branch (procedure) [code = 31341140] Future Scheduled 2013 [facility] Vaccine (SHINGRIX) (1 Medica l Branch of 2) [code = Zoster Recombinant Vaccine (SHINGRIX) (1 of 2)] Future Scheduled 2013 Screening for occult [facility] [place] Test 00:00:00 blood in feces Medical Branc h (procedure) [code = 501276918] Future Scheduled 2013 [facility] Test 00:00:00 colorectal cancer Medical Br anch screening (procedure) [code = 358479553560509] Future Scheduled 2013 [facility]ible fiberoptic [facility]:00 sigmoidoscopy Medical Branch (procedure) [code = 10887619] Future Scheduled 2013 Zoster Recombinant Unive rsity [facility] Test 00:00:00 Vaccine (SHINGRIX) (1 Medica l Branch of 2) [code = Zoster Recombinant Vaccine (SHINGRIX) (1 of 2)] Future Scheduled 1984 Screening for [facility] Test 00:00:00 malignant neoplasm of Medica l Branch cervix (procedure) [code = 522949884] Future Scheduled 1984 Screening for [facility] Test 00:00:00 malignant neoplasm of Medica l Branch cervix (procedure) [code = 648763865] Future Scheduled 1982 DTaP,Tdap,and Td Univers ity [facility] Test 00:00:00 Vaccines (1 - Tdap) Medical Branch [code = DTaP,Tdap,and Td Vaccines (1 - Tdap)] Future Scheduled 1982 DTaP,Tdap,and Td [facility] [place] Test 00:00:00 Vaccines (1 - Tdap) Medical Branch [code = DTaP,Tdap,and Td Vaccines (1 - Tdap)] Future Scheduled 1981 Hepatitis C screening [facility] [place] Test 00:00:00 (procedure) [code = Medical Branch 460182967] Future Scheduled 1981 Hepatitis C screening [facility] [place] Test 00:00:00 (procedure) [code = Medical Branch 805702130] Future Scheduled 1975 Depression screening [facility] [place] Test 00:00:00 (procedure) [code = Medical Branch 196696394] Future Scheduled 1975 Depression screening [facility] [place] Test 00:00:00 (procedure) [code = Medical Branch 982492013] Encounters Start End Encounter Admission Attending Care Care Encounter Source Date/Time Date/Time Type Type Clinicians Facility Department ID 2022-08-18 2022-08-18 [facility], Ang - [facility] [id number] Univers 08:45:00 08:45:47 Visit Dayan Dial [facility] [id number] Kathy [id number] Berny as JOSEPH?BLEA [phone] [place] gerald [address] MEDICAL OFFICE BUILDING 2022-08-18 2022-08-18 Outpatient Libby DIAL [facility] [id number] Univers 08:45:00 08:45:00 DAYAN sandoval [facility] [place] [facility] 2022-08-17 2022-08-17 Outpatient Libby DIAL [facility] [id number] Univers 09:15:00 09:50:05 DAYAN [facility] 2022-08-17 2022-08-17 Office Claude [facility] [id number] Univers 09:15:00 09:50:05 Visit [facility] [id number] it y of [place] [id number] Berny as JOSEPH?BLEA [id number] [address] OFFICE [facility] 2022-08-17 2022-08-17 [facility] [id number] Univers 09:15:00 09:15:00 DAYAN [id number] [facility] 2022-08-12 2022-08-12 [facility] [id number] Univers 15:30:00 16:11:42 INES [facility] 2022-08-12 2022-08-12 [facility] [id number] Univers 15:30:00 16:11:42 Visit Ines BANDAR [id number] i [place] [id number] [place] [phone] [place] stephanie[address] 2022-08-11 2022-08-11 [facility] [id number] Univers 00:00:00 00:00:00 [facility] [id number] it y of [place] [id number] Berny as JOSEPH?BLEA [id number] [address] OFFICE [facility] 2022-08-03 2022-08-03 Office [facility] [id number] Univers 15:30:00 16:00:00 Visit Ca [facility] [id number] it y of [place] [id number] Berny as JOSEPH?BLEA [id number] [address] OFFICE [facility] Results This patient has no known results.
[2022-08-22 21:21] LABS: Urine Blood Trace-intact (Negative); Urine Glucose Negative (Negative); Urine Protein Trace (Negative)
[2022-08-22 21:31] LABS: Absolute Lymphocytes (CBC) 1.8 K/uL (0.7-4.9); Hematocrit 41.3 % (36.0-45.0); Lymphocytes % 13.9 % (15.3-44.8); MCV 92.4 fL (80-100); MPV 8.9 fL (7.6-11.3); RBC Red Blood Cell Count 4.47 M/uL (3.86-4.86)
[2022-08-22 21:57] LABS: Alkaline Phosphatase 277 U/L (45-117); BUN Blood Urea Nitrogen 20 mg/dL (7-18); Bicarbonate 33 mmol/L (21-32); Bilirubin Total 0.7 mg/dL (0.2-1.0); Glomerular Filtration Rate 62 ml/min (=/>90); Glucose Level 134 mg/dL (74-106); Lipase 183 U/L (73-393); Potassium 4.2 mmol/L (3.5-5.1); Protein, Total 7.7 g/dL (6.4-8.2); Sodium Level 141 mmol/L (136-145)
[2022-08-22 22:02] LABS: ALT/SGPT 548 U/L (12-78); AST/SGOT 966 U/L (15-37)
[2022-08-22] MEDS ORDERED: NA CHLORIDE 0.9% 500 ML ONE (22:06)
[2022-08-22] MEDS ORDERED: ONDANSETRON 4 MG/2 ML VIAL ONE (22:06)
[2022-08-22] MEDS ORDERED: MORPHINE 4 MG/ML SYR ONE (22:06)
[2022-08-22] MEDS ORDERED: FAMOTIDINE 20 MG/2 ML VIAL IV ONE (22:06)
--- NOTE | 2022-08-22 22:35 | RAD REPORT ---
EXAM DESCRIPTION: CTAbdomen Pelvis W Contrast - 08/22/2022 10:20 pm CLINICAL HISTORY: Abdominal pain. Abdominal pain, acute, nonlocalized COMPARISON: <Comparisons> TECHNIQUE: Biphasic CT imaging of the abdomen and pelvis was performed with 100 ml non-ionic IV cont rast. All CT scans are performed using dose optimization technique as appropriate and may include automated exposure control or mA/KV adjustment according to patient size. FINDINGS: The lung bases are clear. The liver, spleen, adrenal glands and kidneys are within normal limits. Slight edematous appearance t o the pancreatic tail. Punctate right renal calculus without hydronephrosis. Benign right renal cyst. No bowel obstruction, free air, free fluid or abscess. Mild sigmoid diverticulosis. The appendix is n ormal. No evidence of significant lymphadenopathy. No suspicious bony findings. IMPRESSION: Slight edematous appearance to the pancreatic tail could indicate pancreatitis. Advise c orrelation with amylase/ lipase levels.
--- NOTE | 2022-08-22 23:09 | RAD REPORT ---
EXAM DESCRIPTION: US - Abdomen Exam Limited - 08/22/2022 10:57 pm CLINICAL HISTORY: ABD PAIN COMPARISON: No comparisons FINDINGS: The gallbladder demonstrates extensive stones and sludge. Gallbladder appears dilated. No pericholecystic fluid or gallbladder wall thickening. The common bile duct is mildly prominent measur ing 6-7 mm.. The liver demonstrates no findings of intrahepatic biliary dilatation. IMPRESSION: Extensive small gallstones and sludge noted with a distended gallbladder. Common bile duct is mildly prominent. MRCP would be useful for further evaluation of the biliary tree .
--- NOTE | 2022-08-22 23:54 | EDPHYS ---
Physician Documentation [facility] Name: Samara Alex Age: 57 yrs Sex: Female : 1965 Arrival Date: 08/22/2022 Time: 20:47 Bed 25 Private MD: ED Physician Loyd Cabral HPI: 08/22 23:54 This 57 yrs old Female presents to ER via Ambulatory with complaints of Abdominal Pain, kdr Nausea. 23:54 The patient presents to the emergency department with nausea, that is moderate. Onset: kdr The symptoms/episode began/occurred suddenly, today, 4 hour(s) ago. Possible causes: unknown. The symptoms are aggravated by nothing. The symptoms are alleviated by nothing. Associated signs and symptoms: Pertinent positives: abdominal pain, nausea, Pertinent negatives: constipation, diarrhea, dysuria, fever, vomiting. Severity of symptoms: At their worst the symptoms were mild moderate in the emergency department the symptoms are unchanged. The patient has not experienced similar symptoms in the past. The patient has not recently seen a physician. Historical: - Allergies: 20:57 No Known Allergies; vc1 - Home Meds: 20:57 Linzess oral [Active]; Lisinopril Oral [Active]; Estradiol Oral [Active]; levothyroxine vc1 oral [Active]; - PMHx: 20:57 Hypertensive disorder; vc1 - PSHx: 20:57 hysterectomy; vc1 - Immunization history:: Adult Immunizations up to date, Client reports receiving the 2nd dose of the Covid vaccine. - Social history:: Smoking status: Patient reports the use of cigarette tobacco products, less than a pack. ROS: 23:54 Constitutional: Negative for fever, chills, and weight loss, Eyes: Negative for injury, kdr pain, redness, and discharge, ENT: Negative for injury, pain, and discharge, Neck: Negative for injury, pain, and swelling, Cardiovascular: Negative for chest pain, palpitations, and edema, Respiratory: Negative for shortness of breath, cough, wheezing, and pleuritic chest pain, Back: Negative for injury and pain, : Negative for injury, bleeding, discharge, and swelling, MS/Extremity: Negative for injury and deformity, Skin: Negative for injury, rash, and discoloration, Neuro: Negative for headache, weakness, numbness, tingling, and seizure activity. Psych: Negative for depression, anxiety, suicide ideation, homicidal ideation, and hallucinations, Allergy/Immunology: Negative for hives, rash, and allergies, Endocrine: Negative for neck swelling, polydipsia, polyuria, polyphagia, and marked weight changes, Hematologic/Lymphatic: Negative for swollen nodes, abnormal bleeding, and unusual bruising. 23:54 Abdomen/GI: Positive for abdominal pain, nausea, Negative for vomiting. Exam: 23:54 Constitutional: This is a well developed, well nourished patient who is awake, alert, kdr and in moderate distress. Head/Face: Normocephalic, atraumatic. Eyes: Pupils equal round and reactive to light, extra-ocular motions intact. Lids and lashes normal. Conjunctiva and sclera are non-icteric and not injected. Cornea within normal limits. Periorbital areas with no swelling, redness, or edema. Neck: Trachea midline, no thyromegaly or masses palpated, and no cervical lymphadenopathy. Supple, full range of motion without nuchal rigidity, or vertebral point tenderness. No Meningismus. Chest/axilla: Normal chest wall appearance and motion. Nontender with no deformity. No lesions are appreciated. Cardiovascular: Regular rate and rhythm with a normal S1 and S2. No gallops, murmurs, or rubs. Normal PMI, no JVD. No pulse deficits. Respiratory: Lungs have equal breath sounds bilaterally, clear to auscultation and percussion. No rales, rhonchi or wheezes noted. No increased work of breathing, no retractions or nasal flaring. Back: No spinal tenderness. No costovertebral tenderness. Full range of motion. Skin: Warm, dry with normal turgor. Normal color with no rashes, no lesions, and no evidence of cellulitis. MS/ Extremity: Pulses equal, no cyanosis. Neurovascular intact. Full, normal range of motion. Neuro: Awake and alert, GCS 15, oriented to person, place, time, and situation. Cranial nerves II-XII grossly intact. Motor strength 5/5 in all extremities. Sensory grossly intact. Cerebellar exam normal. Normal gait. Psych: Awake, alert, with orientation to person, place and time. Behavior, mood, and affect are within normal limits. 23:54 Abdomen/GI: Inspection: abdomen appears normal, Bowel sounds: diminished, in all quadrants, Palpation: moderate abdominal tenderness, in the epigastric area, right upper quadrant and left upper quadrant. Vital Signs: 20:55 Weight 81.65 kg; Height 5 ft. 11 in. (180.34 cm); Pain 9/10; vc1 21:00 Pulse 76; Resp 18; Temp 98.4; Pulse Ox 99% ; vc1 21:00 BP 127 / 68; vc1 21:28 BP 136 / 72; Pulse 76; Pulse Ox 99% on R/A; aa9 21:36 BP 132 / 61; Pulse 75; Resp 13 S; Pulse Ox 97% on R/A; aa9 22:36 BP 133 / 68; Pulse 75; Resp 12; Pulse Ox 99% on R/A; aa9 08/23 00:34 BP 129 / 61; Pulse 75; Resp 18; Pulse Ox 99% on R/A; Pain 6/10; as6 01:45 BP 120 / 42; Pulse 84; Resp 18; Pulse Ox 96% ; tw5 01:45 BP 120 / 42; Pulse 84; Resp 18; Pulse Ox 96% on R/A; tw5 08/22 20:55 Body Mass Index 25.10 (81.65 kg, 180.34 cm) vc1 MDM: 08/22 23:54 Patient medically screened. kdr 23:54 Data reviewed: vital signs, nurses notes, lab test result(s), radiologic studies. kdr Counseling: I had a detailed discussion with the patient and/or guardian regarding: the historical points, exam findings, and any diagnostic results supporting the discharge/admit diagnosis, lab results, radiology results, the need for further work-up and treatment in the hospital. 08/22 21:08 Order name: CBC with Diff as6 08/22 21:08 Order name: CMP as6 08/22 21:08 Order name: Lipase as6 08/22 21:22 Order name: Urine Dipstick-Ancillary; Complete Time: 23:16 EDMS 08/22 21:33 Order name: CBC with Automated Diff; Complete Time: 23:16 EDMS 08/22 22:03 Order name: Comprehensive Metabolic Panel; Complete Time: 00:31 EDMS 08/22 22:03 Order name: Lipase; Complete Time: 00:31 EDMS 08/22 23:37 Order name: Acetaminophen kdr 08/22 23:37 Order name: UDS kdr 08/22 23:38 Order name: ETOH Level kdr 08/22 23:57 Order name: Alcohol Serum/Plasma; Complete Time: 23:58 EDMS 08/22 23:59 Order name: PT-INR la1 08/23 00:12 Order name: Acetaminophen Level; Complete Time: 00:31 EDMS 08/23 00:59 Order name: Urine Drug Screen; Complete Time: 01:02 EDMS 08/22 21:54 Order name: CT Abd/Pelvis - IV Contrast Only kdr 08/22 22:29 Order name: US Abdomen Limited kdr 08/22 22:36 Order name: CT; Complete Time: 23:16 EDMS 08/22 23:09 Order name: US; Complete Time: 23:16 EDMS 08/23 01:43 Order name: Protime (+INR); Complete Time: 05:36 EDMS 08/23 04:39 Order name: CBC with Automated Diff; Complete Time: 05:36 EDMS 08/23 04:41 Order name: Protime (+INR); Complete Time: 05:36 EDMS 08/23 05:30 Order name: Comprehensive Metabolic Panel; Complete Time: 05:36 EDMS 08/23 05:31 Order name: Lipid Profile; Complete Time: 05:36 EDMS 08/23 05:34 Order name: Lipase; Complete Time: 05:36 EDMS 08/23 06:02 Order name: PTT, Activated Partial Thromb EDMS 08/23 06:28 Order name: [place] Screen EDMS 08/23 06:52 Order name: SARS RAPID ds4 08/23 08:12 Order name: SARS-COV-2 Antigen Rapid EDMS 08/23 08:51 Order name: MRI EDMS 08/22 21:08 Order name: IV Saline Lock; Complete Time: 21:16 as6 08/22 21:08 Order name: Labs collected and sent; Complete Time: 21:16 as6 08/22 21:08 Order name: Urine Dipstick-Ancillary (obtain specimen); Complete Time: 21:16 as6 08/22 23:55 Order name: NPO; Complete Time: 01:54 la1 Administered Medications: 22:14 Drug: morphine 4 mg Route: IVP; Infused Over: 4 mins; Site: right antecubital; aa9 08/23 02:01 Follow up: Response: No adverse reaction as08/22 22:14 Drug: Zofran (Ondansetron) 4 mg Route: IVP; Site: right antecubital; 08/23 02:01 Follow up: Response: No adverse reaction as08/22 22:14 Drug: NS 0.9% 500 ml Route: IV; Rate: bolus; Site: right antecubital; 08/23 02:01 Follow up: Response: No adverse reaction; IV Status: Completed infusion; IV Intake: as6 500ml 08/22 22:14 Drug: Pepcid (famotidine) 20 mg Route: IVP; Site: right antecubital; 08/23 02:01 Follow up: Response: No adverse reaction as6 00:38 Drug: morphine 4 mg Route: IVP; Infused Over: 4 mins; Site: right antecubital; tw5 01:45 Follow up: BP 120 / 42; Pulse 84 bpm; Resp 18 bpm; Pulse Ox 96% RA; Response: No tw5 adverse reaction; Marked relief of symptoms; Pain is decreased Disposition Summary: 08/22/22 23:54 Hospitalization Ordered Hospitalization Status: Inpatient Admission kdr Provider: José Joshi Condition: Fair kdr Problem: new kdr Symptoms: have improved kdr Bed/Room Type: Standard kdr Location: Telemetry/MedSurg (Inpatient)(08/23/22 12:09) bd Room Assignment: 424(08/23/22 12:09) bd Diagnosis - Upper abdominal pain, unspecified kdr Forms: - Medication Reconciliation Form kdr - SBAR form kdr Signatures: Dispatcher [employer] EDMS Cristiane Jiang Loyd Cabral MD MD kdr Brad Puente, PODIATRIC ASSISTANT-C PODIATRIC ASSISTANT-Cla1 Neftaly Edmondson RN RN jb4 Natalee Quinteros RN RN eb1 Judy Christy tw5 Ashu Martinez RN RN as6 Jolly Burnett RN RN vc1 Shae Bond, RN RN aa9 Corrections: (The following items were deleted from the chart) 00:16 08/22 23:54 Telemetry/MedSurg (Inpatient) kdr eb1 08/23 00:16 08/22 23:54 kdr eb1 08/23 12:09 00:16 [facility] ER HOLD eb1 bd 12:09 00:16 ERHOLD- eb1 bd
--- NOTE | 2022-08-22 23:54 | ER ---
Nurse's Notes [facility] Name: Samara Alex Age: 57 yrs Sex: Female : 1965 Arrival Date: 08/22/2022 Time: 20:47 Bed 25 Private MD: Diagnosis: Upper abdominal pain, unspecified Presentation: 08/22 20:55 Chief complaint: Patient states: "I am having some abdominal pain it has been going on vc1 for 4 hours, it stopped for a little bit after taking Mylanta but it came back.". Coronavirus screen: Vaccine status: Patient reports receiving the 2nd dose of the covid vaccine. [employer] At this time, the client does not indicate any symptoms associated with coronavirus-19. Ebola Screen: No symptoms or risks identified at this time. Risk Assessment: Do you want to hurt yourself or someone else? Patient reports no desire to harm self or others. Onset of symptoms was August 22, 2022 at 17:00. 20:55 Method Of Arrival: Ambulatory vc1 20:55 Acuity: LOVELY 3 vc1 22:40 Initial Sepsis Screen: Does the patient meet any 2 criteria? No. Patient's initial aa9 sepsis screen is negative. Does the patient have a suspected source of infection? No. Patient's initial sepsis screen is negative. Triage Assessment: 20:59 General: Appears uncomfortable, ill, Behavior is cooperative. Pain: Complains of pain vc1 in epigastric area, right upper quadrant and left upper quadrant Pain radiates to right lower quadrant Pain currently is 8 out of 10 on a pain scale. EENT: No deficits noted. Neuro: No deficits noted. Cardiovascular: No deficits noted. Respiratory: No deficits noted. GI: Last BM was August 21, 2022. Reports upper abdominal pain, epigastric pain. : No deficits noted. Derm: No deficits noted. Musculoskeletal: No deficits noted. No signs and/or symptoms reported regarding the musculoskeletal system. Historical: - Allergies: 20:57 No Known Allergies; vc1 - Home Meds: 20:57 Linzess oral [Active]; Lisinopril Oral [Active]; Estradiol Oral [Active]; levothyroxine vc1 oral [Active]; - PMHx: 20:57 Hypertensive disorder; vc1 - PSHx: 20:57 hysterectomy; vc1 - Immunization history:: Adult Immunizations up to date, Client reports receiving the 2nd dose of the Covid vaccine. - Social history:: Smoking status: Patient reports the use of cigarette tobacco products, less than a pack. Screenin:40 Abuse screen: Denies threats or abuse. Denies injuries from another. Nutritional aa9 screening: No deficits noted. Tuberculosis screening: No symptoms or risk factors identified. Fall Risk None identified. Assessment: 21:35 General: Appears distressed, uncomfortable, Behavior is cooperative, appropriate for aa9 age, quiet. Pain: Complains of pain in epigastric area Pain currently is 8 out of 10 on a pain scale. Quality of pain is described as burning, Pain began 4 hours ago. Noted to be grimacing, guarding, moaning, resistant to movement. Neuro: Level of Consciousness is awake, alert, obeys commands, confused, Oriented to person, place, time, situation. Cardiovascular: Patient's skin is warm and dry. Respiratory: Airway is patent Respiratory effort is even, unlabored. GI: Bowel sounds present X 4 quads. Abd is soft X 4 quads Abdomen is tender to palpation in epigastric area. 22:59 Reassessment: Patient appears in no apparent distress at this time. Patient and/or jb4 family updated on plan of care and expected duration. Pain level reassessed. Patient is alert, oriented x 3, equal unlabored respirations, skin warm/dry/pink. Patient states feeling better. Patient states symptoms have improved. 08/23 00:34 General: Appears in no apparent distress. as6 00:35 Reassessment: Patient states feeling better. Patient states symptoms have improved. as6 General: Reports "The pain isn't as bad as it was.". 01:55 Reassessment: Patient and/or family updated on plan of care and expected duration. Pain tw5 level reassessed. Patient is alert, oriented x 3, equal unlabored respirations, skin warm/dry/pink. Patient states feeling better. Patient states symptoms have improved. Vital Signs: 08/22 20:55 Weight 81.65 kg; Height 5 ft. 11 in. (180.34 cm); Pain 9/10; vc1 21:00 Pulse 76; Resp 18; Temp 98.4; Pulse Ox 99% ; vc1 21:00 BP 127 / 68; vc1 21:28 BP 136 / 72; Pulse 76; Pulse Ox 99% on R/A; aa9 21:36 BP 132 / 61; Pulse 75; Resp 13 S; Pulse Ox 97% on R/A; aa9 22:36 BP 133 / 68; Pulse 75; Resp 12; Pulse Ox 99% on R/A; aa9 08/23 00:34 BP 129 / 61; Pulse 75; Resp 18; Pulse Ox 99% on R/A; Pain 6/10; as6 01:45 BP 120 / 42; Pulse 84; Resp 18; Pulse Ox 96% ; tw5 01:45 BP 120 / 42; Pulse 84; Resp 18; Pulse Ox 96% on R/A; tw5 08/22 20:55 Body Mass Index 25.10 (81.65 kg, 180.34 cm) vc1 ED Course: 08/22 20:47 Patient arrived in ED. bp1 20:53 Loyd Cabral MD is Attending Physician. kdr 20:57 Triage completed. vc1 21:00 Arm band placed on left wrist. vc1 21:16 Inserted saline lock: 20 gauge in right antecubital area, using aseptic technique. as6 Blood collected. 21:35 Shae Bond, ANA is Primary Nurse. aa9 22:14 CBC with Diff Sent. aa9 22:14 CMP Sent. aa9 22:14 Lipase Sent. aa9 22:40 Patient has correct armband on for positive identification. Bed in low position. Call aa9 light in reach. Side rails up X2. Client placed on continuous cardiac and pulse oximetry monitoring. NIBP monitoring applied. Warm blanket given. 23:53 José Joshi MD is Hospitalizing Provider. kdr 08/23 01:55 No provider procedures requiring assistance completed. Patient admitted, IV remains in tw5 place. 05:36 Notified the Hospitalist of a critical lab result(s), ALT and AST. ke1 Administered Medications: 08/22 22:14 Drug: morphine 4 mg Route: IVP; Infused Over: 4 mins; Site: right antecubital; aa9 08/23 02:01 Follow up: Response: No adverse reaction as6 08/22 22:14 Drug: Zofran (Ondansetron) 4 mg Route: IVP; Site: right antecubital; aa9 08/23 02:01 Follow up: Response: No adverse reaction as6 08/22 22:14 Drug: NS 0.9% 500 ml Route: IV; Rate: bolus; Site: right antecubital; aa9 08/23 02:01 Follow up: Response: No adverse reaction; IV Status: Completed infusion; IV Intake: as6 500ml 08/22 22:14 Drug: Pepcid (famotidine) 20 mg Route: IVP; Site: right antecubital; aa9 08/23 02:01 Follow up: Response: No adverse reaction as6 00:38 Drug: morphine 4 mg Route: IVP; Infused Over: 4 mins; Site: right antecubital; tw5 01:45 Follow up: BP 120 / 42; Pulse 84 bpm; Resp 18 bpm; Pulse Ox 96% RA; Response: No tw5 adverse reaction; Marked relief of symptoms; Pain is decreased Medication: 01:56 VIS not applicable for this client. tw5 Intake: 02:01 IV: 500ml; Total: 500ml. as6 Outcome: 08/22 23:54 Decision to Hospitalize by Provider. kdr 08/23 01:56 Admitted to ER Hold. Please see [facility] for further documentation. tw5 Condition: improved Instructed on the need for admit. 12:45 Patient left the ED. ap3 Signatures: Loyd Cabral MD MD kdr Neftaly Edmondson RN RN jb4 Silvia Colon RN RN ap3 Paula Casey Tiffany tw5 Ashu Martinez RN RN as6 Jolly Burnett RN RN vc1 Rudolph Pozo RN RN ke1 Shae Bond RN RN aa9 Corrections: (The following items were deleted from the chart) 08/22 22:59 22:59 Reassessment: Patient appears in no apparent distress at this time. Patient jb4 and/or family updated on plan of care and expected duration. Pain level reassessed. Patient is alert, oriented x 3, equal unlabored respirations, skin warm/dry/pink. jb4
[2022-08-23] MEDS ORDERED: MORPHINE 4 MG/ML SYR ONE (00:32)
[2022-08-23 00:58] LABS: Barbiturates NEGATIVE (NEGATIVE); Benzodiazepines NEGATIVE (NEGATIVE); Cocaine NEGATIVE (NEGATIVE); METHAMPHETAM NEGATIVE (NEGATIVE); Methadone NEGATIVE (NEGATIVE); Opiates POSITIVE (NEGATIVE); Phencyclidine NEGATIVE (NEGATIVE); THC Cannibis NEGATIVE (NEGATIVE)
--- NOTE | 2022-08-23 01:14 | P.HP ---
Certification for Inpatient Patient admitted to: Inpatient With expected LOS: >2 Midnights Patient will require the following post-hospital care: None Practitioner: I am a practitioner with admitting privileges, knowledge of patient current condition, hospital course, and medical plan of care. Services: Services provided to patient in accordance with Admission requirements found in Title 42 Section 412.3 of the Code of Federal Regulations <CindiBrad rSinivasan - Last Filed: 08/23/22 01:08> Patient History Date of Service: 08/23/22 Reason for admission: Abdominal pain, elevated LFTs History of Present Illness: 57-year-old female with history of hypertension, hypothyroidism presents the emergency department with epigastric pain that began yesterday. She reports she has had similar pain in the past she is unsure if it was related to eating previously this time eating small amount of steak/has made her pain significantl y worse almost immediately. She is evaluated in the emergency department her labs were significant for mild leukocytosis, transaminitis, elevated alk phos. Abdominal CT with IV contrast demonstrated slight edematous appearance to the pancreatic tail which could indicate pancreatitis. Advise correlation with amylase and lipase levels. Lipase level was within normal limits. Abdominal ultrasound was also performed which revealed extensive small gallstones and sludge noted within the distended gallbladder, CBD is mildly prominent. MRCP would be useful for further evaluation of the biliary tree. ED provider discussed case with on-call GI services recommended admission to the hospitalist service but will consult. Will admit for further evaluation and management. - Past Medical/Surgical History -: Hypertension -: Hypothyroidism -: Hysterectomy -: Knee surgery -: Hemorrhoidectomy Psychosocial/ Personal History: Patient is employed as a manager inventory, she lives with her and children. - Family History Father -: Cancer - Social History Smoking Status: Never smoker Alcohol use: No CD- Drugs: No Caffeine use: Yes Place of Residence: Home <Brad Puente - Last Filed: 08/23/22 01:08> Date of Service: 08/23/22 <José Joshi - Last Filed: 08/23/22 23:09> Review of Systems 10-point ROS is otherwise unremarkable Gastrointestinal: Nausea, Abdominal Pain <Brad Puente - Last Filed: 08/23/22 01:08> Physical Examination - Physical Exam General: Alert, In no apparent distress, Oriented x3 HEENT: Atraumatic, PERRLA, Mucous membr. moist/pink, EOMI, Sclerae nonicteric Neck: Supple, 2+ carotid pulse no bruit, No LAD, Without JVD or thyroid abnormality Respiratory: Clear to auscultation bilaterally, Normal air movement Cardiovascular: Regular rate/rhythm, Normal S1 S2 Capillary refill: <2 Seconds Gastrointestinal: Normal bowel sounds, Tenderness (Moderate epigastric, right upper quadrant tenderness) Musculoskeletal: No tenderness Integumentary: No rashes Neurological: Normal gait, Normal speech, Normal strength at 5/5 x4 extr, Normal tone, Normal affect Lymphatics: No axilla or inguinal lymphadenopathy - Studies Laboratory Data (last 24 hrs) 08/22/22 21:15: Sodium 141, Potassium 4.2, BUN 20 H, Creatinine 1.04, Glucose 134 H, Total Bilirubin 0.7, AST 966 H*, ALT 548 H*, Alkaline Phosphatase 277 H, Lipase 183 08/22/22 21:15: WBC 12.60 H, Hgb 13.9, Hct 41.3, Plt Count 300 <Brad Puente - Last Filed: 08/23/22 01:08> - Studies Laboratory Data (last 24 hrs) 08/22/22 21:15: Sodium 141, Potassium 4.2, BUN 20 H, Creatinine 1.04, Glucose 134 H, Total Bilirubin 0.7, AST 966 H*, ALT 548 H*, Alkaline Phosphatase 277 H, Lipase 183 <José Joshi - Last Filed: 08/23/22 23:09> Assessment and Plan - Plan Assessment: Abdominal tenderness, transaminitis-rule out choledocholithiasis/cholecystitis Hypertension Hypothyroidism Plan: Abdominal tenderness, transaminitis-rule out choledocholithiasis/cholecystitis: N.p.o., IVF, GI consulted, ED provider discussed case with him last night. MRCP ordered continue antibioticsZosyn. As needed pain medications and antiemetics. Hypertension: Hold oral medications, restart when appropriate Hypothyroidism: Hold oral medications continue appropriate. DVT PPX: SCD Code status: Full Discharge Plan: Home Plan to discharge in: 72 Hours - Advance Directives Does patient have a Living Will: No Does patient have a Durable POA for Healthcare: No - Code Status/Comfort Care Code Status Assessed: Yes (Full code) Critical Care: No Time Spent Managing Pts Care (In Minutes): 70 <Brad Puente - Last Filed: 08/23/22 01:08> - Plan Patient seen and examined this morning on rounds. significant tenderness in RUQ/epigastrium. lipase and LFTs significantly elevated, concern for choledocholithiasis MRCP noted CBD normal caliber, suspect she passed the stone general surgery consulted, plan for lap amber with cholangiogram today <José Joshi - Last Filed: 08/23/22 23:09>
[2022-08-23 01:43] LABS: Protime INR 0.97
[2022-08-23 02:40] VITALS: BMI 24.8
[2022-08-23] MEDS ORDERED: ONDANSETRON 4 MG/2 ML VIAL IV PRN (03:50)
[2022-08-23] MEDS: D5 0.45 NS 1,000 ML IV SCH ×2 (03:50→20:12)
[2022-08-23] MEDS: PIPER TAZO 3.375 GM in NA CHLORIDE 0.9% 100 ML IV SCH ×3 (04:00→20:17)
[2022-08-23 04:37] LABS: Absolute Lymphocytes (CBC) 1.2 K/uL (0.7-4.9); Hematocrit 38.2 % (36.0-45.0); Lymphocytes % 14.6 % (15.3-44.8); MCV 91.9 fL (80-100); MPV 8.8 fL (7.6-11.3); RBC Red Blood Cell Count 4.16 M/uL (3.86-4.86)
[2022-08-23 04:41] LABS: Protime INR 0.96
[2022-08-23 05:30] LABS: Potassium 4.7 mmol/L (3.5-5.1)
[2022-08-23 05:31] LABS: Albumin 3.7 g/dL (3.4-5.0); Bilirubin Total 1.4 mg/dL (0.2-1.0); Protein, Total 6.8 g/dL (6.4-8.2)
[2022-08-23] MEDS ORDERED: MORPHINE 2 MG/ML SYR ONE ×2 (05:44→09:17)
[2022-08-23] MEDS: MORPHINE 2 MG/ML SYR IV PRN ×2 (05:49→09:22)
[2022-08-23] MEDS ORDERED: PIPERACIL/TAZO 3.375 GM VIAL IV ONE (05:51)
[2022-08-23] MEDS ORDERED: D5 0.45 NS 1,000 ML IV ONE (05:52)
[2022-08-23] MEDS ORDERED: NA CHLORIDE 0.9% 100 ML IV ONE (05:55)
[2022-08-23 08:11] LABS: SARS-CoV-2 Antigen Rapid Res Negative (Negative)
--- NOTE | 2022-08-23 08:51 | RAD REPORT ---
EXAM DESCRIPTION: MRI - Cholangiogram - 08/23/2022 7:55 am CLINICAL HISTORY: Abd pain, elevated LFT, poss. choledoco COMPARISON: Abdomen Exam Limited dated 08/22/2022; Abdomen Pelvis W Contrast dated 08/22/2022 FINDINGS: Three-dimensional MRCP was performed using maximum intensity projection reconstruction on the same work station. No intrahepatic biliary tree dilatation is seen. The common bile duct is normal caliber without evide nce of retained stone, stricture or mass. The pancreatic duct is not pathologically dilated. Extensive cholelithiasis is present with small amount of pericholecystic fluid seen. Limited T2 sequences through the abdomen demonstrates no bulky adenopathy, significant free fluid or abscess. IMPRESSION: Extensive cholelithiasis with mild pericholecystic fluid evident. No common bile duct stone suspected. No pathologic biliary dilatation seen.
[2022-08-23] MEDS ORDERED: HYDROMORPHONE HCL 1 MG/ML INJ ONE (12:03)
[2022-08-23] MEDS ORDERED: ONDANSETRON 4 MG/2 ML VIAL ONE ×3 (12:03→16:52)
[2022-08-23] MEDS ORDERED: HYDROMORPHONE HCL 1 MG/ML INJ IV PRN (12:15)
[2022-08-23] MEDS ORDERED: propofoL 200 MG/20 ML VIAL IV ONE (14:03)
[2022-08-23] MEDS ORDERED: LIDOCAINE 1% W/EPI 1:100,000 MDV 20 ML VIAL ONE (14:04)
[2022-08-23] MEDS ORDERED: ROCURONIUM 50 MG/5 ML VIAL IV ONE (14:05)
[2022-08-23] MEDS ORDERED: FENTANYL CITR 100 MCG/2 ML ONE ×2 (14:05→15:39)
[2022-08-23] MEDS ORDERED: Ringers Lactate 1,000 ML IV ONE (14:38)
[2022-08-23] MEDS ORDERED: dexAMETHasone 10 MG/ML VIAL ONE (15:01)
[2022-08-23] MEDS ORDERED: KETOROLAC 30 MG/ML INJ ONE (15:01)
[2022-08-23] MEDS ORDERED: Phenylephrine HCl 10 MG/ML 1 ML VIAL ONE (15:27)
[2022-08-23] MEDS ORDERED: GLYCOPYRROLATE 0.2 MG/ML SYR ONE (15:56)
--- NOTE | 2022-08-23 16:10 | P.OP ---
Preoperative diagnosis: Acute cholecystitis with cholelithiasis, possible choledocholithiasis Postoperative diagnosis: Acute cholecystitis with cholelithiasis Primary procedure: Laparoscopic cholecystectomy Secondary procedure: Cholangiogram Anesthesia: General Estimated blood loss: Less than 20 cc Specimen: Gallbladder and contents Operative Technique: Patient brought the operating room and placed supine on the table. After the induction of adequate general endotracheal anesthesia, there the abdomen was prepped with a DuraPrep solution, she was draped in usual aseptic manner. A subumbilical incision was made. This was brought down through the skin and subcutaneous tissue. The Visiport was now used to enter the peritoneal cavity and created pneumoperitoneum to approximately 12 mmHg. Under direct vision a 5 mm trocar was placed to the upper midline, and 2 other 5 mm trochars on the right lateral side of the abdomen. We were able to visualize the right upper quadrant. We could see a chronically inflamed gallbladder with a marked amount of edema in his brewer. The patient was placed in reverse Trendelenburg and the table turned to the left. We were now able to grasp the fundus of the gallbladder. Another was placed on by Mccarthy's pouch. After gentle dissection we were able to expose the cystic duct and artery. A clip was placed between the gallbladder and the cystic duct. An opening was made into the cystic duct. At this point we encountered small mulberry type stones in the cystic duct. These were gently milked back to clear this area. At this point the Cholangiocath was now placed into the cystic duct. A intraoperative cholangiogram was obtained. We could see she had a tortuous cystic duct, no evidence of any stones were seen in the extrahepatic biliary tree. We had good flow of contrast into the duodenum. At this point the catheter was removed. Clips were placed on the distal portion of the cystic duct. The cystic duct was then transected. The cystic duct was somewhat wide and edematous in this area particular where the stone had been impacted. Because of this I remove the clips and actually placed a chromic tie in this area. This ligature was cinched down and then a clip was placed on top of it. At this point the attention was turned towards the cystic artery. It was clipped and divided in the usual way. The gallbladder was now dissected free for the liver bed, placed into an Endo Catch, and brought out through the umbilical trocar site the rest of the right upper quadrant was inspected to ensure adequate hemostasis. It was irrigated with the irrigating solution. The umbilical trocar site was approximated using the Endo Close and an absorbable suture. At the end of the procedure the patient was returned to the neutral position on the OR table. The pneumoperitoneum was collapsed, the trochars removed, and jyoti applied to the skin. At the end of the procedure she she was in a stable condition was sent to the recovery room. Needle sponge instrument count were correct. No drains were placed. Complications: None Transferred to: Recovery Room Condition: Good
--- NOTE | 2022-08-23 16:45 | RAD REPORT ---
EXAM DESCRIPTION: RAD - Cholangiogram Oper-Xray Or - 08/23/2022 4:38 pm FINDINGS: Two portable C-arm views from intraoperative cholangiogram were submitted. Extrahepatic bi liary tree and cystic duct show no filling defects. No stricture, mass or suspicious finding noted. Fluoro time was less than 0.1 minutes. Cumulative dose was 0.55 mGy.
[2022-08-23] MEDS: HYDROMORPHONE HCL 1 MG/ML INJ ONE ×2 (16:53→16:58)
[2022-08-23] MEDS: HYDROCODONE/APAP 7.5/325 MG TAB PO PRN ×2 (18:24→22:42)
[2022-08-24] MEDS ORDERED: HYDROMORPHONE HCL 0.5 MG/0.5 ML INJ IV ONE (02:42)
[2022-08-24] MEDS ORDERED: NA CHLORIDE 0.9% 100 ML ONE (03:04)
[2022-08-24] MEDS ORDERED: PIPERACIL/TAZO 3.375 GM VIAL IV ONE (03:05)
[2022-08-24] MEDS: PIPER TAZO 3.375 GM in NA CHLORIDE 0.9% 100 ML IV SCH ×2 (03:12→11:37)
[2022-08-24 04:08] LABS: Absolute Lymphocytes (CBC) 0.4 K/uL (0.7-4.9); Lymphocytes % 4.2 % (15.3-44.8); MCV 93.4 fL (80-100); MPV 9.2 fL (7.6-11.3); RBC Red Blood Cell Count 3.75 M/uL (3.86-4.86)
[2022-08-24 04:27] LABS: Albumin 3.2 g/dL (3.4-5.0); Bilirubin Total 0.9 mg/dL (0.2-1.0); Magnesium 2.4 mg/dL (1.8-2.4); Potassium 4.8 mmol/L (3.5-5.1); Protein, Total 6.6 g/dL (6.4-8.2)
[2022-08-24 05:14] LABS: Blood Morphology Comment NOT SEEN (NOT SEEN); Platelet Estimate ADEQ
[2022-08-24] MEDS: HYDROCODONE/APAP 7.5/325 MG TAB PO PRN ×2 (05:28→09:12)
[2022-08-24] MEDS: D5 0.45 NS 1,000 ML IV SCH ×2 (05:30→09:50)
[2022-08-24] MEDS ORDERED: INFLUENZA VACCINE (for 6+ mo) 0.5 ML DOSE IMVAC ONE (09:00)
[2022-08-24 09:01] VITALS: TEMP 97.6
--- NOTE | 2022-08-24 09:07 | P.PN ---
Subjective Date of Service: 08/24/22 Chief Complaint: TIGRE/RUQ pain, nausea, elevated LFTs, cholelithiasis, cholecystitis Subjective: Improving (S/p lap amber yesterday with less pain today. States she feels better.) Review of Systems 10-point ROS is otherwise unremarkable Gastrointestinal: Abdominal Pain (Improving) Physical Examination - Vital Signs Temperature: 97.6 F Blood Pressure: 127/55 Pulse: 70 Respirations: 16 Pulse Ox (%): 96 - Physical Exam General: Alert, In no apparent distress, Oriented x3, Cooperative HEENT: Atraumatic, Normocephalic, PERRLA, EOMI Neck: Supple Respiratory: Normal air movement Cardiovascular: Normal pulses Gastrointestinal: Soft and benign, No tenderness, No rebound, No guarding Neurological: Normal speech, Normal strength at 5/5 x4 extr Assessment And Plan - Current Problems (Diagnosis) (1) Epigastric pain Current Visit: Yes Status: Acute Comment: Improving. (2) RUQ abdominal pain Current Visit: Yes Status: Acute (3) Nausea Current Visit: Yes Status: Acute (4) Cholelithiasis Current Visit: Yes Status: Acute (5) Cholecystitis Current Visit: Yes Status: Acute (6) Gallstone pancreatitis Current Visit: Yes Status: Acute (7) Abnormal ultrasound Current Visit: Yes Status: Acute (8) Abnormal CT of the abdomen Current Visit: Yes Status: Acute - Plan REC: 1) diet as per surgery 2) GI clinic f/u prn
[2022-08-24 09:19] VITALS: O2SAT 95
[2022-08-24 11:53] VITALS: BP 129/55
--- NOTE | 2022-08-24 13:18 | P.DS ---
Admission Date: 08/23/22 Discharge Date: 08/24/22 Disposition: ROUTINE DISCHARGE Discharge Condition: FAIR Reason for Admission: TIGRE/RUQ pain, nausea, elevated LFTs, cholelithiasis, cholecystitis - Problems (1) Cholecystitis, acute Current Visit: Yes Status: Acute (2) Elevated liver enzymes Current Visit: Yes Status: Acute (3) Gallstone pancreatitis Current Visit: Yes Status: Acute Brief History of Present Illness: 57-year-old female with history of hypertension, hypothyroidism presents the emergency department with epigastric pain that began yesterday. She reports she has had similar pain in the past she is unsure if it was related to eating previously this time eating small amount of steak/has made her pain significantly worse almost immediately. She is evaluated in the emergency department her labs were significant for mild leukocytosis, transaminitis, elevated alk phos. Abdominal CT with IV contrast demonstrated slight edematous appearance to the pancreatic tail which could indicate pancreatitis. Advise correlation with amylase and lipase levels. Lipase level was within normal limits. Abdominal ultrasound was also performed which revealed extensive small gallstones and sludge noted within the distended gallbladder, CBD is mildly prominent. ED provider discussed case with on-call GI services recommended admission to the hospitalist service but will consult. Patient admitted for further evaluation and management. Hospital Course: Patient admitted to the medical floor, started on IV antibiotic. Her liver enzymes trended up significantly. MRCP was done which did not show any CBD stone. General surgery was consulted, patient was seen by Dr. Jeter who performed lap cholecystectomy, Intra-Op cholangiogram did not show any CBD stone. Patient's liver enzymes trended down post cholecystectomy but still elevated. Patient seen in consultation by GI-Dr. Haskins recommended outpatient follow-up. She has tolerated full liquid diet, denies any abdominal pain. Her only complaint is nonproductive cough. Chest x-ray: Patient reevaluated by Dr. Jeter and deemed stable for discharge. Vital Signs/Physical Exam: Temp Pulse Resp BP Pulse Ox 97.6 F 66 14 129/55 L 99 08/24/22 11:52 08/24/22 11:52 08/24/22 11:52 08/24/22 11:52 08/24/22 11:52 General: Alert, In no apparent distress, Oriented x3 HEENT: Mucous membr. moist/pink Neck: Supple, JVD not distended Respiratory: Clear to auscultation bilaterally, Normal air movement Cardiovascular: No edema, Regular rate/rhythm, Normal S1 S2 Gastrointestinal: Soft and benign, Non-distended Musculoskeletal: No swelling Integumentary: No rashes Neurological: Normal strength at 5/5 x4 extr Laboratory Data at Discharge: WBC 9.90 K/uL (4.3-10.9) 08/24/22 03:21 Hgb 12.1 g/dL (12.0-15.0) 08/24/22 03:21 Hct 35.0 % (36.0-45.0) L 08/24/22 03:21 Plt Count 230 K/uL (152-406) 08/24/22 03:21 PT 10.5 SECONDS (9.5-12.5) 08/23/22 04:13 INR 0.96 08/23/22 04:13 APTT 29.2 SECONDS (24.3-36.9) 08/23/22 05:22 Sodium 135 mmol/L (136-145) L D 08/24/22 03:21 Potassium 4.8 mmol/L (3.5-5.1) 08/24/22 03:21 BUN 12 mg/dL (7-18) 08/24/22 03:21 Creatinine 0.79 mg/dL (0.55-1.3) 08/24/22 03:21 Glucose 131 mg/dL (74-106) H 08/24/22 03:21 Magnesium 2.4 mg/dL (1.8-2.4) 08/24/22 03:21 Total Bilirubin 0.9 mg/dL (0.2-1.0) 08/24/22 03:21 AST 1020 U/L (15-37) H* 08/24/22 03:21 ALT 1485 U/L (12-78) H* 08/24/22 03:21 Alkaline Phosphatase 391 U/L (45-117) H D 08/24/22 03:21 Triglycerides 111 mg/dL (<150) 08/23/22 04:13 Cholesterol 198 mg/dL (<200) 08/23/22 04:13 HDL Cholesterol 60 mg/dL (40-60) 08/23/22 04:13 Cholesterol/HDL Ratio 3.30 08/23/22 04:13 Lipase 161 U/L (73-393) 08/24/22 03:21 Home Medications: Estradiol [Yuvafem] 20 mcg PO DAILY 08/23/22 Levothyroxine Sodium [Levothyroxine] 50 mcg PO DAILY 08/23/22 Linaclotide [Linzess] 145 mg PO DAILY 08/23/22 Lisinopril [Zestril] 40 mg PO DAILY 08/23/22 Naproxen [Naprosyn] 500 mg PO BID 08/23/22 Guaifenesin/Dextromethorphan [Robitussin Cough-Chest Dm Liq] 10 ml PO TID PRN #237 ml 08/24/22 Hydrocodone 7.5/APAP 325 [Chelsea 7.5/325 mg*] 1 tab PO Q4H PRN #15 tab 08/24/22 New Medications: Hydrocodone 7.5/APAP 325 [Chelsea 7.5/325 mg*] 1 tab PO Q4H PRN #15 tab PRN Reason: Pain Scale 5-7 (Moderate) Guaifenesin/Dextromethorphan [Robitussin Cough-Chest Dm Liq] 10 ml PO TID PRN #237 ml PRN Reason: Cough Physician Discharge Instructions: Start with soft diet and advance as tolerated. Please recheck LFT in 1 week to make sure liver enzyme elevation is completely resolved. Activity: Ad jose miguel Followup: Neftaly Jeetr MD [ACTIVE - CAN ADMIT] - 1 Week Matt Haskins MD [ASSOCIATE-ACTIVE - CAN ADMIT] - 1-2 Weeks Neftaly Dial MD [Primary Care Provider] - 1-2 Weeks Time spent managing pt's care (in minutes): 37
--- NOTE | 2022-08-24 14:22 | CON ---
Date of Consultation: 08/23/2022 Reason For Consultation: Cholelithiasis, cholecystitis, and gallstone pancreatitis. History Of Present Illness: The patient is a 57-year-old white female with history of hypertension a nd hypothyroidism, who presented to the emergency room with midepigastric pain and nausea. The patie nt states the pain actually traversed to the right upper quadrant area as well. CT scan of abdomen a nd pelvis revealed edematous pancreatic tail and an ultrasound of the abdomen revealed extensive gall stones in gallbladder with sludge, distended gallbladder, and common bile duct with 6 to 7 mm. MRCP revealed no common bile duct stones with extensive gallstones in the gallbladder and mild pericholecy stic fluid. The patient denies any melena, hematochezia, hematemesis, coffee-grounds emesis, hematur ia, dysuria, polydipsia, chest pain, shortness of breath. No emesis. No cough. Past Medical History: Significant for hypertension, hypothyroidism, hysterectomy, knee surgery, and hemorrhoidectomy, and knee surgery with the right ACL repair. Home Medications: See list for thyroid medicines - blood pressure medications. Allergies: NKDA. Social History: She is , 2 children. Tobacco, 1 pack per day. Alcohol, occasionally. Family History: Father of complications of COVID. Also had history of unknown cancer in her mo ther, who has coronary artery disease with cardiac stent. Otherwise, alive and well. Review of Systems: The patient has midepigastric right upper quadrant pain with nausea. She denies any emesis, fevers, chills, night sweats, heat or cold intolerance, diarrhea, constipation, change in bowel habits and we ight, muscle aches, joint aches, backaches, depression, anxiety, hematochezia, hematemesis, coffee-gr ounds emesis, hematuria, dysuria, polyuria, polydipsia, lower extremity edema. No depression or anxi ety noted. Physical Examination: Vital Signs: The patient is 5 feet 11 inches, 178 pounds, BMI 24 kg/m2. Temperature 98.5 degrees Fa hrenheit, pulse 70, respirations 18, blood pressure 124/56, and O2 sat 98% to 100%. General: She is a well-nourished, well-developed female. HEENT: Normocephalic, atraumatic. Anicteric. Pupils equal, round, and reactive to light. Extraocu lar movements are intact. Oropharynx clear. Neck: Supple. No masses. Respirations: Clear to auscultation bilaterally. Cardiac: Regular rate and rhythm. No gallops or rubs. Abdomen: Hypoactive bowel sounds. Pain down the midepigastric right upper quadrant area with positi ve Murray sign with guarding noted, but no rebound. The patient has some tenderness throughout the r est of the remainder of the abdomen midepigastric. Extremities: No clubbing, cyanosis, or edema. 2+ pulses. Neuro: Alert and oriented x3. Grossly nonfocal. 5/5 motor. Able to move all extremities well. Laboratory Data: The patient has a white count of 7.9 down to 12.6 yesterday, hemoglobin 13.0, hemat ocrit 38.2, platelet count of 341. Polys 73%, lymphocytes . PT of 10.5, INR of 1.96. Sod ium 142, potassium 4.7, chloride 108, bicarb 32, BUN 18, creatinine of 0.89, glucose 109, calcium 8.9 , total bilirubin 1.4, AST of , ALT of 1149 up from 548 yesterday, alkaline phosphatase is 309 up from 377 yesterday, total protein 6.8, albumin 3.7, triglycerides 111, cholesterol 198, LDL of 116, HDL of 60, lipase of 6331 up from yesterday. UA shows trace ketone, trace blood, tr mariaelena total protein, positive opiates, otherwise negative. Negative COVID-[address] of the abdomen and pelvis, slightly edematous pancreatic tail. Ultrasound of abdomen revealed extensive gallstones in gallbladder with sludge, distended gallbladder, common bile duct 6 to 7 cm. MRCP revealed no com mon bile duct stones with extensive gallstones in the gallbladder, mild pericholecystic fluid consist ent with cholecystitis. Impression: Cholelithiasis, cholecystitis with gallstone pancreatitis with midepigastric right upper quadrant pain associated with nausea, AST and ALT elevated 2194 and 1429, lipase 631, alkaline phosp hatase 309, total bilirubin 1.4. Ultrasound of the abdomen revealed extensive gallstones in gallblad dania with slightly distended gallbladder and common bile duct of [address] scan revealed slightly edematous pancreatic tail consistent with pancreatitis. MRCP revealed no common bile duct stones wi th extensive gallstones in gallbladder and mild pericholecystic fluid. Once again, consistent with c holelithiasis, cholecystitis and gallstone pancreatitis. History of hypertension, hypothyroidism, hysterectomy, right anterior cruciate ligament surgery in th e past and hemorrhoidectomy surgery. Recommendations: 1.Lap cholecystectomy as per Surgery. 2.Continue IV fluids and IV antibiotics. 3.Continue p.r.n. pain medications and antiemetics. We will monitor the patient and follow along. JOAQUIN/JOSE Voice ID: [id number] Report ID: [id number]
== END 2022-08-24 13:45 | disposition home or self-care (01) | DRG 417 ==
LOC: ER 20:44 → ERHOLD 08-23 01:16 → 4TH 08-23 12:40
PROVIDERS: ADMIT Hospitalist; ATTEND Internal Medicine
PROC: BF121ZZ Fluoroscopy of Gallbladder using Low Osmolar Contrast (ICD-10-PCS; 2022-08-23)
PROC: 0FT44ZZ Resection of Gallbladder, Percutaneous Endoscopic Approach (ICD-10-PCS; principal; 2022-08-23 13:45)
DX: K80.00 Calculus of gallbladder with acute cholecystitis without obstruction (principal); K85.10 Biliary acute pancreatitis without necrosis or infection; I10 Essential (primary) hypertension; E03.9 Hypothyroidism, unspecified; F17.210 Nicotine dependence, cigarettes, uncomplicated; R93.5 Abnormal findings on diagnostic imaging of other abdominal regions, including retroperitoneum; Z79.899 Other long term (current) drug therapy; Z79.890 Hormone replacement therapy; Z90.710 Acquired absence of both cervix and uterus; Z20.822 Contact with and (suspected) exposure to COVID-19
CPT/HCPCS: 36415; 74177; 74181; 74300; 76705; 80053; 80061; 80307; 80320; 80329; 81003; 83690; 83735; 85025; 85610; 85730; 86308; 87811; 88304; 94010; 96361; 96374; 96375; 99285; J1100; J1170; J2270; J2370; J2405; J2543; J2704; J3010; J7040; J7120; J7799; Q9967

== ENCOUNTER 2023-11-11 08:54 | Day surgery (SDC) | payer BC ==
[2023-11-10 13:58] LABS: Hematocrit 35.9 % (36.0-45.0); Lymphocytes % 20.8 % (15.3-44.8); MCV 91.6 fL (80-100); MPV 7.8 fL (7.6-11.3); Platelets 309 thou/uL (152-406); RBC Red Blood Cell Count 3.92 M/uL (3.86-4.86)
[2023-11-10 14:14] LABS: Potassium 3.3 mEq/L (3.5-5.1)
[2023-11-11] MEDS ORDERED: CEFAZOLIN SODIUM 1 GM/VIAL ONE (09:08)
[2023-11-11] MEDS ORDERED: Ringers Lactate 1,000 ML IV ONE (09:08)
[2023-11-11] MEDS ORDERED: propofoL 200 MG/20 ML VIAL IV ONE (10:07)
[2023-11-11] MEDS ORDERED: FENTANYL CITR 100 MCG/2 ML ONE (10:07)
[2023-11-11] MEDS ORDERED: MIDAZOLAM HCL 2 MG/2 ML INJ ONE (10:07)
[2023-11-11] MEDS ORDERED: ONDANSETRON 4 MG/2 ML VIAL ONE ×2 (10:07→11:47)
[2023-11-11] MEDS ORDERED: KETOROLAC 30 MG/ML INJ ONE (10:07)
[2023-11-11] MEDS ORDERED: LIDOCAINE 2% MPF 5 ML VIAL ONE (10:07)
[2023-11-11] MEDS: MORPHINE 4 MG/ML SYR ONE ×3 (11:50→12:05)
[2023-11-11] MEDS ORDERED: MORPHINE 4 MG/ML SYR ONE (12:04)
[2023-11-11] MEDS: HYDROMORPHONE HCL 1 MG/ML INJ ONE ×4 (12:15→12:31)
--- NOTE | 2023-11-11 12:19 | OP ---
Surgeon: Omega Gary MD Preoperative Diagnosis: Right knee pain with mechanical symptoms, probable meniscal tear or tears. 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 2.Medial meniscal tear. 3.Lateral meniscal tear. Procedure: Right knee arthroscopy with debridement of medial and lateral meniscal tears. Estimated Blood Loss: Less than 10 cc. Complications: There were no complications. Indications For Operation: Ms. Alex is a 58-year-old female who unfortunately has had problems with the knee after the accident. She has a previous history of anterior cruciate ligament reconstructio n and does have some mild arthritic changes. She does not describe any instability, but says she gambino s have mechanical symptoms, which were unabated with conservative measures and risks, benefits, and a lternatives to this procedure had been discussed with her. She states she understands things as pres ented and wishes to proceed. Description Of Procedure: Patient was taken to the operating room, placed in supine position. Gener al anesthesia was obtained by staff. Following this, a well-padded tourniquet was placed on superior right thigh and it was not used throughout the case. Right lower extremity was then prepped and india ped in usual sterile fashion for the procedure. After this a standard superior medial arthroscopy po rtal was then placed atraumatically with 1 pass with liberation of a few cc of rather normal-appearin g synovial fluid. This was followed by placement of inferolateral arthroscopy portal and the camera was introduced in the knee atraumatically with 1 pass. The knee was then sequentially examined inclu ding suprapatellar pouch, medial and lateral gutters, medial and lateral compartments as well as the notch and patellofemoral joint. Pertinent findings included some fraying and scarring near the ACL. However, the ACL itself appeared to be in continuity. There was also some synovial hypertrophy medi ally and what appeared to be grade 2 chondromalacia of the medial femoral condyle. Also seen is a pr obable tear of the medial meniscus. Lateral meniscus was difficult to visualize because of the fat p ad. A standard inferior medial arthroscopy portal was then established using a needle for localizati on. This allowed for probing throughout the medial meniscus and it does have a displaceable radial t ear posteriorly. This was debrided back to a firm, well contoured hook stable base using a combinati on of shaver and hand instruments. After this, attention was then turned laterally where some fat pa d was debrided to allow for better visualization. She was then placed in [id number] and there do es appear to be some tear of the posterior aspect of the lateral meniscus. There also appeared to be a probable small body within the notch. This was palpated and removed using hand instrument and sha jovany, as well as completion of the debridement of the torn portion of the lateral meniscus. The knee was then again examined on all the above areas with no further pathology seen, which was amenable to arthroscopic intervention. The inferior arthroscopy portals were then stapled shut. Superior medial arthroscopy portal was used for placement of Marcaine and it was then stapled. The patient was plac ed in a well-padded sterile dressing, awakened, and taken to recovery room in good condition. There were no complications. SE/MODL Voice ID: [id number] Report ID: [id number]
[2023-11-11] MEDS ORDERED: HYDROMORPHONE HCL 1 MG/ML INJ ONE (12:24)
[2023-11-11 13:05] VITALS: BP 117/60; TEMP 97.1; O2SAT 96
[2023-11-11] MEDS ORDERED: HYDROCODONE/APAP 7.5/325 MG TAB ONE (13:16)
--- NOTE | 2023-11-11 15:07 | EKG ---
Test Date: 2023-11-10 Test Time: 14:45:47 Pharmacy Messenger: DAVID MEASUREMENT RESULTS: Intervals: Rate: 77 MT: 150 QRSD: 98 QT: 364 QTc: 411 [place]: P: 72 MT: 150 QRS: 66 T: 65 INTERPRETIVE STATEMENTS: Normal sinus rhythm Normal ECG No previous ECG available for comparison Electronically Signed On 11-11-23 15:07:16 BANKRUPTCY ASSISTANT by Francisco Moncada
== END 2023-11-11 13:40 | disposition home or self-care (01) ==
LOC: OR 08:54
PROVIDERS: ATTEND Orthopaedic Surgery
PROC: 0SBC4ZZ Excision of Right Knee Joint, Percutaneous Endoscopic Approach (ICD-10-PCS; 2023-11-11)
PROC: 0SBC4ZZ Excision of Right Knee Joint, Percutaneous Endoscopic Approach (ICD-10-PCS; principal; 2023-11-11 10:30)
DX: S83.241D Other tear of medial meniscus, current injury, right knee, subsequent encounter (principal); S83.281D Other tear of lateral meniscus, current injury, right knee, subsequent encounter; I10 Essential (primary) hypertension
CPT/HCPCS: 29880; 93005; 85025; 80048; 36415; J2704; J2001; J2250; J3010; J1170 ×2; J2405 ×2; J7120; J0690

== ENCOUNTER 2024-06-19 07:24 | Observation (INO) | payer BC ==
[2024-06-14 13:40] LABS: Absolute Basophils 0.1 K/uL (0-0.5); Absolute Eosinophils 0.1 K/uL (0-0.5); Absolute Lymphocytes (CBC) 1.6 K/uL (0.7-4.9); Absolute Monocytes 0.6 K/uL (0.1-1.3); Absolute Neutrophil 3.8 K/uL (1.8-8.0); Basophils % 1.5 % (0-1.3); Eosinophils % 1.5 % (0-4.4); Hematocrit 37.1 % (36.0-45.0); Hemoglobin 12.1 g/dL (12.0-15.0); Lymphocytes % 25.8 % (15.3-44.8); MCH 30.6 pg (27.0-35.0); MCHC 32.6 g/dL (32.0-36.0); MCV 93.8 fL (80-100); MPV 8.5 fL (7.6-11.3); Monocytes % 9.4 % (3.3-12.3); Neutrophils % 61.8 % (41.7-73.7); Platelets 273 thou/uL (152-406); RBC Red Blood Cell Count 3.96 M/uL (3.86-4.86)
[2024-06-14 13:46] LABS: Specific Gravity 1.016 (1.005-1.030); Urine Bilirubin NEGATIVE (Negative); Urine Blood Negative (Negative); Urine Clarity Clear (Clear); Urine Color Light-Yellow (Yellow); Urine Glucose NEGATIVE (Negative); Urine Ketones NEGATIVE (Negative); Urine Microscopic Reflex YN NO UMIC; Urine Nitrite NEGATIVE (Negative); Urine Protein NEGATIVE (Negative); Urine Urobilinogen Normal (Normal); Urine pH 5.5 (5.0-7.0)
[2024-06-14 13:56] LABS: PT Prothrombin Time 10.5 SECONDS (9.4-12.5); PTT, Activated Partial Thromb 31.5 SECONDS (24.3-36.9); Protime INR 0.94
[2024-06-14 14:02] LABS: Albumin 3.7 g/dL (3.4-5.0); Albumin/Globulin Ratio 1.1 (1.1-1.8); Anion Gap 7.8 mEq/L (5.0-15.0); Bilirubin Total 0.4 mg/dL (0.2-1.0); Globulin 3.4 g/dL (2.3-3.5); Potassium 3.8 mEq/L (3.5-5.1); Protein, Total 7.1 g/dL (6.4-8.2)
--- NOTE | 2024-06-14 15:26 | RAD REPORT ---
EXAM DESCRIPTION: Ghanshyam Montelongo And Telma (2 Views)06/14/2024 2:30 pm CLINICAL HISTORY: Preop for knee surgery. Hypertension COMPARISON: None FINDINGS: The lungs appear clear of acute infiltrate. The heart is normal size IMPRESSION: No acute abnormalities displayed
[2024-06-19] MEDS: Ringers Lactate 1,000 ML IV ONE ×2 (07:55→10:40)
[2024-06-19] MEDS: LIDOCAINE 1% MPF 5 ML VIAL ONE (08:10)
[2024-06-19] MEDS: dexAMETHasone 10 MG/ML VIAL ONE (08:10)
[2024-06-19] MEDS: FENTANYL CITR 100 MCG/2 ML ONE (08:10)
[2024-06-19] MEDS: MIDAZOLAM HCL 2 MG/2 ML INJ ONE (08:11)
[2024-06-19] MEDS: HYDROMORPHONE HCL 2 MG/ML inj ONE ×2 (08:11→12:58)
[2024-06-19] MEDS: EPINEPHRINE 1 MG/ML VIAL ONE (08:11)
[2024-06-19] MEDS: MAGNESIUM SULFATE 1 gm IVPB 1 GM/100 ML BAG IV ONE (08:12)
[2024-06-19] MEDS: BUPIVACAINE 0.25% PF 30 ML VIAL ONE (08:12)
[2024-06-19] MEDS: Oxycodone HCl/Acetaminophen 5/325 MG TAB ONE (08:27)
[2024-06-19] MEDS: GABAPENTIN 100 MG CAP ONE (08:27)
[2024-06-19] MEDS: CELECOXIB 100 MG CAPSULE ONE (08:28)
[2024-06-19] MEDS: ACETAMINOPHEN 500 MG TAB ONE (08:28)
[2024-06-19] MEDS: DEXMEDETOMIDINE HCL 200 MCG/2 ML VIAL ONE (08:33)
[2024-06-19] MEDS ORDERED: LIDOCAINE 1% MPF 5 ML VIAL ONE (08:38)
[2024-06-19] MEDS ORDERED: propofoL 200 MG/20 ML VIAL IV ONE (08:38)
[2024-06-19] MEDS ORDERED: KETAMINE HCL IN 0.9 % NACL 50 MG/5 ML SYRINGE IV ONE (08:39)
[2024-06-19] MEDS: CEFAZOLIN SODIUM 2 GM/VIAL ONE (09:57)
[2024-06-19] MEDS: TRANEXAMIC ACID 1,000 MG/10 ML VIAL IV ONE (10:11)
[2024-06-19] MEDS ORDERED: KETOROLAC 30 MG/ML INJ ONE (10:13)
[2024-06-19] MEDS ORDERED: dexAMETHasone 10 MG/ML VIAL ONE (10:13)
[2024-06-19] MEDS ORDERED: ONDANSETRON 4 MG/2 ML VIAL ONE (10:13)
[2024-06-19] MEDS ORDERED: EPHEDRINE SULF 50 MG/ML VIAL ONE (11:07)
--- NOTE | 2024-06-19 12:25 | P.BOP ---
Preoperative diagnosis: right knee arthritis Postoperative diagnosis: same Primary procedure: right total knee Estimated blood loss: 100ccs Anesthesia: General Complications: None Transferred to: Recovery Room Condition: Good
[2024-06-19] MEDS: ONDANSETRON 4 MG/2 ML VIAL ONE (13:18)
[2024-06-19 13:22] VITALS: O2SAT 98
[2024-06-19 14:11] VITALS: BMI 27.1
[2024-06-19] MEDS: CEFAZOLIN 1 GM in NA CHLORIDE 0.9% 50 ML IVPB SCH (15:24)
[2024-06-19] MEDS: HYDROCODONE/APAP 7.5/325 MG TAB PO PRN (15:26)
--- NOTE | 2024-06-19 16:55 | OP ---
Date of Procedure: 06/19/2024 Surgeon: Omega Gary MD Preoperative Diagnosis: Right knee arthritis. Postoperative Diagnosis: Right knee arthritis. Procedure: Right total knee arthroplasty using the Vanguard system. Estimated Blood Loss: 100 cc. Complications: There were no complications. Indications For Operation: Ms. Alex is a 58-year-old female who has been troubled for quite some ti me with the right knee. She has failed conservative management including medications and activity mo difications, also knee arthroscopy for mechanical symptom was performed. She did well initially, but had continued increasing pain. She then had injections and other conservative measures, all of whic h did not alleviate her pain. She does have arthritic changes on MRI, also was noted on arthroscopy. These were not severe, but it appeared to be most likely significantly positioned in her knee to ca use persistent pain. She is tearful with pain when she comes to the office, essentially has exhauste d all further conservative management and she desires total knee arthroplasty. She knows people who have had this before who have done well. We did discuss with her that a total knee arthroplasty is a bout an 80% knee and not as good as a [place] knee. Also, the further risks, benefits, and alternativ es associated with it as well as a significant amount of rehab that she would need to do. She says s he understands everything as presented and wishes to proceed. Description Of Procedure: Patient was taken to the operating room, placed in supine position. She d id have a previous block in the holding area. General anesthesia was easily obtained by the Anesthes ia staff. Following this, well-padded tourniquet was placed on superior right thigh. Right lower ex tremity was then prepped and draped in usual sterile fashion for the procedure. Following this, the leg was then elevated, gently exsanguinated with an Chapo wrap and the knee was bent. After this, a st andard anterior incision was taken down carefully through skin and soft tissues. Meticulous hemostas is being maintained using Bovie electrocautery. This led down to the extensor mechanism and the supe rior medial pole of patella was marked. A standard medial patellar arthrotomy was then performed wit h liberation of approximately 20 cc of rather normal-appearing synovial fluid. Following this, the k nee was then examined. Pertinent findings included grade 4 chondromalacia of the medial compartment including the femur and reciprocal changes in the tibia. Also seen is an osteochondral loss of bone on the posterior aspect of the lateral condyle as well as some fraying of the chondral tissue at the patellofemoral joint. After this, the medial and lateral menisci were then debrided along with the a nterior and posterior cruciate ligament, which gives excellent visualization of the femur. The intra medullary alignment guide was then placed in standard fashion. Distal femur was then cut. It was th en sized to a size 70. The remainder of the femoral cuts were then performed without difficulty. At tention was then turned to the tibia and tibia was cut in standard fashion. The tibia and femur were then trialed using a size 12 poly, which appears to come to full extension, appears balanced in both flexion and extension, appears to have good alignment. Attention was then turned to the patella. I t was then calipered and cut. A size 31 trial patella was then placed. The patella glides ideally. After this, the wound was irrigated and the box was cut and tibia was punched. There was a small ar ea of scar from previous ACL reconstruction and the punch does deviate just a tiny bit laterally but not much. Decision was made to continue with this as it did appear to fit the tibia quite well. Aft er this, all of the bony surfaces were then prepped for cementation and the final components with the exception of the polyethylene are then placed and all unsupported cement was removed and it was held in place until the cement dried. The knee was then brought through full range of motion and goes fu ll flexion easily, full extension easily and it appears to be balanced in both flexion and extension. So the final 14 polyethylene was then selected. It was then placed. The locking bar was placed. It was again irrigated. We searched for any unsupported cement. After this, the extensor mechanism was then repaired using heavy Ethibond sutures. It was then irrigated. The skin was closed using in terrupted Vicryl sutures followed by jyoti. Patient was placed in a well-padded sterile dressing, awakened, and taken to recovery room in good condition. There were no complications. SE/MODL Voice ID: [id number] Report ID: [id number]
[2024-06-19] MEDS: MORPHINE 2 MG/ML SYR IV PRN (18:45)
--- NOTE | 2024-06-20 00:15 | P.CNS ---
Date of Consult: 06/20/24 Reason for Consult: medical managment Chief Complaint: s/p Right TKA History of Present Illness: 58-year-old female with past medical history of hypertension, IBS, sleep apnea on CPAP, hypothyroidism underwent right total knee replacement today surgery EBL 100 cc Medical consultation for medical management. Postoperatively she reports that she does have some discomfort that improves with pain medicines. She typically is constipated and takes Linzess for that. She denies any dizziness nausea abdominal pain. She reports that she previously was on thyroid replacement. Currently off medications. She does take lisinopril for hypertension. She reports that she does not have any cardiopulmonary complaints. Allergies No Known Allergies Allergy (Verified 11/11/23 09:47) Home Medications: Lisinopril [Zestril] 40 mg PO DAILY 08/23/22 ALPRAZolam [Xanax] 0.5 mg PO BIDP PRN 11/10/23 Varenicline Tartrate 1 mg PO DAILY 11/10/23 Azelastine [Astelin 137MCG/Metered [place]] 1 spray NS BID 06/14/24 Biotin 1 cap PO DAILY 06/14/24 Cholecalciferol (Vitamin D3) [Vitamin D3] 1 cap PO DAILY 06/14/24 Cyclobenzaprine [Flexeril] 10 mg PO TID PRN 06/14/24 Duloxetine HCl 60 mg PO DAILY 06/14/24 Ferrous Sulfate [Iron] 325 mg PO DAILY 06/14/24 Garlic 1 tab PO DAILY 06/14/24 Glucos Sul 2Kcl/MSM/Chond/C/Mn [Glucosamine Chondroitin Cap] 1 each PO DAILY 06/14/24 Linaclotide [Linzess] 290 mcg PO DAILY 06/14/24 Lysine 1 tab PO DAILY 06/14/24 Meloxicam [Mobic] 7.5 mg PO DAILY 06/14/24 Montelukast Sodium [Singulair] 10 mg PO DAILY 06/14/24 Multivitamin/Iron/Folic Acid [Centrum Adults Tablet] 1 each PO DAILY 06/14/24 Venlafaxine HCl [Effexor XR] 150 mg PO DAILY 06/14/24 Vitamin B Complex [B-Complex Vitamin] 1 cap PO DAILY 06/14/24 - Past Medical/Surgical History Diabetic: No -: DVT 1987 -: hypertension -: arthritis -: cholecystectomy -: neck surgery -: back surgery -: shoulder surgery -: hysterectomy -: right pinky reattached -: right ACL and meniscus surgery Psychosocial/ Personal History: Patient is employed as a manager of internal, she lives with her and children. - Family History Father Medical History: Cancer, Other (see notes) Notes: bladder cancer Mother Medical History: Cancer, Other (see notes) Notes: thyroid cancer - Social History Alcohol use: Yes CD- Drugs: No Caffeine use: Yes Place of Residence: Home Review of Systems 10-point ROS is otherwise unremarkable Gastrointestinal: No Distention, Constipation Musculoskeletal: Leg Pain Physical Examination Temp Pulse Resp BP Pulse Ox 97.0 F 91 H 16 107/67 92 06/19/24 20:00 06/19/24 20:00 06/19/24 20:00 06/19/24 20:00 06/19/24 20:00 General: In no apparent distress, Oriented x3 HEENT: Atraumatic, Normocephalic Neck: Supple Respiratory: Clear to auscultation bilaterally, Normal air movement Cardiovascular: Normal pulses, Regular rate/rhythm Gastrointestinal: Hypoactive, Soft and benign, Non-distended Musculoskeletal: Other (Right knee immobilizer dressing intact) Integumentary: Other (Bruising noted on arms and legs, thin skin) Neurological: Normal speech - Problems (1) Osteoarthritis Current Visit: Yes Status: Acute (2) IBS (irritable bowel syndrome) Current Visit: Yes Status: Acute (3) Sleep apnea Current Visit: Yes Status: Acute (4) Hypertension Current Visit: Yes Status: Acute Conclusions/Impression: 58-year-old female with history of hypertension, sleep apnea, hypothyroidism status post right knee TKA. EBL 100 cc. Status post right knee arthroplasty -- Continue postop care physical therapy, Occupational Therapy, as needed analgesics --Currently her pain is controlled when she is receiving pain medications Irritable bowel syndrome --She reports that she is mostly constipated and states that Linzess helps we will restart home medications Hypertension --BP stable, will restart lisinopril Sleep apnea --Continue CPAP, using home unit Hypothyroidism --Previously on replacement currently off treatment states her TSH has been stable DVT prophylaxis: Per orthopedics
[2024-06-20] MEDS: ONDANSETRON 4 MG/2 ML VIAL IV PRN (01:50)
[2024-06-20] MEDS: TRAZODONE 50 MG TABLET PO ONE (02:09)
[2024-06-20] MEDS ORDERED: ACETAMINOPHEN 500 MG TAB PO ONE (04:36)
[2024-06-20 05:51] LABS: Hematocrit 29.7 % (36.0-45.0); Hemoglobin 9.9 g/dL (12.0-15.0)
[2024-06-20] MEDS: ENOXAPARIN 30 MG/0.3 ML SQ SCH (06:08)
[2024-06-20] MEDS: VENLAFAXINE HCL XR 75 MG CAP PO SCH (08:21)
[2024-06-20] MEDS: DULOXETINE 30 MG CAP PO SCH (08:21)
[2024-06-20] MEDS: lisinopriL 20 MG TAB PO SCH (08:22)
[2024-06-20] MEDS: DOCUSATE NA 100 MG CAP PO PRN (08:22)
[2024-06-20] MEDS: MONTELUKAST 10 MG TAB PO SCH (08:22)
[2024-06-20] MEDS: LINACLOTIDE 290 MCG PO SCH (08:23)
[2024-06-20] MEDS ORDERED: HOME MED 1 EA UNK (Lisinopril [Zestril] 40 MG Tablet) PO SCH (09:00)
[2024-06-20] MEDS: FAMOTIDINE 20 MG TAB PO SCH (10:44)
[2024-06-20 12:24] VITALS: BP 123/58; TEMP 97.4
== END 2024-06-20 14:02 | disposition home health service (06) ==
LOC: OR 07:24 → 2ND 12:25
PROVIDERS: ADMIT Orthopaedic Surgery; ATTEND Orthopaedic Surgery
PROC: 0SRC0J9 Replacement of Right Knee Joint with Synthetic Substitute, Cemented, Open Approach (ICD-10-PCS; principal; 2024-06-19 09:45)
DX: M17.11 Unilateral primary osteoarthritis, right knee (principal); I10 Essential (primary) hypertension; K58.9 Irritable bowel syndrome, unspecified; G47.30 Sleep apnea, unspecified; E03.9 Hypothyroidism, unspecified
CPT/HCPCS: 85025; 36415; 85610; 88304; 88311; 85730; 81003; 80053; 71046; 97139; 94010; 27447; J3475; J2704; J2001 ×2; J2250; J1170 ×2; J3010; J1100 ×2; J2270; J0171; J2405 ×2; J7120 ×2; J0690; C1776; 85014; 85018; 88305; 97110; 97116; 97161; 97530; G0378; G0379; J1650

== ENCOUNTER 2025-01-18 05:58 | Day surgery (SDC) | payer BC ==
[2025-01-18] MEDS ORDERED: propofoL 200 MG/20 ML VIAL IV ONE (06:41)
[2025-01-18] MEDS ORDERED: ONDANSETRON 4 MG/2 ML VIAL ONE (06:41)
[2025-01-18] MEDS ORDERED: FENTANYL CITR 100 MCG/2 ML ONE ×2 (06:41→07:06)
[2025-01-18] MEDS ORDERED: MIDAZOLAM HCL 2 MG/2 ML INJ ONE (06:41)
[2025-01-18] MEDS ORDERED: LIDOCAINE 2% MPF 5 ML VIAL ONE (06:41)
[2025-01-18] MEDS ORDERED: dexAMETHasone 10 MG/ML VIAL ONE ×2 (06:58→09:36)
[2025-01-18] MEDS ORDERED: EPHEDRINE SULF 50 MG/ML VIAL ONE (07:02)
[2025-01-18] MEDS ORDERED: KETAMINE HCL IN 0.9 % NACL 50 MG/5 ML SYRINGE IV ONE (07:06)
[2025-01-18] MEDS ORDERED: KETOROLAC 30 MG/ML INJ ONE (07:06)
[2025-01-18] MEDS ORDERED: GLYCOPYRROLATE 0.2 MG/ML SYR ONE (07:13)
[2025-01-18] MEDS: CEFAZOLIN SODIUM 1 GM/VIAL ONE (07:20)
[2025-01-18] MEDS: HYDROMORPHONE HCL 1 MG/ML INJ ONE (08:06)
--- NOTE | 2025-01-18 08:33 | OP ---
Date of Procedure: 01/18/2025 Surgeon: Omega Gary MD Preoperative Diagnosis: Painful total knee arthroplasty with possible synovial impingement or arthro fibrosis. Postoperative Diagnoses: Painful total knee arthroplasty with possible synovial impingement or arthr ofibrosis with synovial hypertrophy, probable impingement and arthrofibrosis. Procedure: Right knee arthroscopy with lysis of adhesions as well as synovectomy of abundant synovia l tissue. There is an aspiration done and examination under anesthesia prior to incision. Indications For Operation: Ms. Alex is a 59-year-old female who underwent total knee arthroplasty, which was quite painful for her by her report. However, eventually the pain did subside very signifi cantly and she went on to apparent good result, but started having increasing pain with detected grin ding or crunching of her patella coming at the knee extension but also occurred when coming to stand, also occurred with walking at times. X-rays demonstrate what appeared to be a well-fixed, well-posi tioned total knee arthroplasty. Obtained serology with normal sedimentation rate and CRP. She never really had a significant effusion. There is no erythema or sign of infection. Attempted to send to Physical Therapy to see where this would alleviate the problem. Unfortunately, this does not have a positive effect and risks, benefits, and alternatives to this procedure have been discussed with her . She states she understands things as presented and wishes to proceed. Description Of Procedure: The patient was taken to the operating room, placed in supine position. G eneral anesthesia was easily obtained by the anesthesia staff. Following this, a well-padded tourniq uet was placed on superior right thigh. Right lower extremity was then prepped and draped in usual s terile fashion for the procedure. Following this, a syringe was used to aspirate approximately 20 cc of slightly bloody synovial fluid. This will be sent for culture as a check, but no sign of pus or overt infection. After this, a standard superior medial arthroscopy portal was then placed with libe ration of scanty synovial fluid. An inferolateral arthroscopy portal was then placed for introductio n of the camera, which was done atraumatically with 1 pass. The knee was then sequentially examined including the suprapatellar pouch. The medial and lateral gutters, medial and lateral compartments a s well as the notch and patellofemoral joint. Pertinent findings included what appeared to be a bloo d or fronding of synovial tissue right along the medial corner superiorly. DICTATION ENDS HERE. /JOES Voice ID: [id number] Report ID: [id number]
[2025-01-18] MEDS: HYDROCODONE/APAP 10/325 TAB ONE (08:54)
--- NOTE | 2025-01-18 08:57 | OP ---
Date of Procedure: 01/18/2025 Surgeon: Omega Gary MD Continuation: Also seen was some excessive synovial tissue near the superior aspect of the patella, but there was no large mass as you would expect with perhaps patellar clunk. After this, a standard inferomedial arthroscopy portal was then placed and a 4.5 shaver was then used to debride some synovi um in the 2 above areas, including a small amount of scar tissue as well. After this, the arthroscop ic portals were then switched allowing for visualization from the medial aspect and there was a littl e synovial tissue at the corner on the lateral aspect. This was also debrided using a 4-0 shaver. A fter this, the knee was brought through range of motion. No detectable grinding or clunk was felt, a nd the patella does glide well within the patellar groove. The arthroscopic instruments were then re moved and stapled. The patient was placed in a well-padded sterile dressing, awakened, and taken to recovery in good condition. /MODL Voice ID: [id number] Report ID: [id number]
[2025-01-18] MEDS: FENTANYL CITR 100 MCG/2 ML ONE (09:34)
[2025-01-18] MEDS ORDERED: LIDOCAINE 1% MPF 5 ML VIAL ONE (09:36)
[2025-01-18] MEDS ORDERED: EPINEPHRINE 1 MG/ML VIAL ONE ×2 (09:36→10:03)
[2025-01-18] MEDS ORDERED: ROPLVACAINE HCL 20 ML ONE ×2 (09:37→10:03)
[2025-01-18] MEDS ORDERED: dexAMETHasone 4 MG/ML VIAL ONE (10:03)
[2025-01-18 12:24] VITALS: BP 115/81; TEMP 97.8; O2SAT 99
== END 2025-01-18 11:06 | disposition home or self-care (01) ==
LOC: OR 05:58
PROVIDERS: ATTEND Orthopaedic Surgery
PROC: 0SBC4ZZ Excision of Right Knee Joint, Percutaneous Endoscopic Approach (ICD-10-PCS; principal; 2025-01-18 07:00)
DX: M65.161 Other infective (teno)synovitis, right knee (principal); M25.561 Pain in right knee; Z96.651 Presence of right artificial knee joint
CPT/HCPCS: 29876; 87070; J2704; J2003 ×2; J2250; J3010 ×3; J1100 ×2; J0171; J1171; J2405; J0690

== ENCOUNTER 2025-01-31 22:50 | Emergency (ER) | payer BC ==
[2025-01-31] MEDS ORDERED: ONDANSETRON 4 MG/2 ML VIAL ONE (23:14)
[2025-01-31] MEDS ORDERED: NA CHLORIDE 0.9% 1,000 ML ONE (23:15)
[2025-01-31] MEDS ORDERED: MORPHINE 4 MG/ML SYR ONE (23:15)
[2025-01-31 23:38] LABS: Absolute Lymphocytes (CBC) 0.9 K/uL (0.7-4.9); Absolute Monocytes 0.5 K/uL (0.1-1.3); Absolute Neutrophil 15.9 K/uL (1.8-8.0); Basophils % 0.2 % (0-1.3); Eosinophils % 0.1 % (0-4.4); Hematocrit 40.4 % (36.0-45.0); Hemoglobin 13.7 g/dL (12.0-15.0); MCH 29.4 pg (27.0-35.0); MCV 86.4 fL (80-100); Monocytes % 2.9 % (3.3-12.3); Neutrophils % 91.8 % (41.7-73.7); Platelets 329 thou/uL (152-406); RBC Red Blood Cell Count 4.67 M/uL (3.86-4.86)
[2025-02-01 00:04] LABS: Albumin/Globulin Ratio 0.9 (1.1-1.8); Anion Gap 9.8 mEq/L (5.0-15.0); Bilirubin Total 0.5 mg/dL (0.2-1.0); Globulin 4.4 g/dL (2.3-3.5); Potassium 3.8 mEq/L (3.5-5.1); Protein, Total 8.4 g/dL (6.4-8.2)
[2025-02-01] MEDS ORDERED: PROMETHAZINE INJ 25 MG/ML AMP ONE (00:24)
[2025-02-01] MEDS ORDERED: MORPHINE 4 MG/ML SYR ONE (00:24)
[2025-02-01] MEDS ORDERED: CYCLOBENZAPRINE 10 MG TAB ONE (00:50)
[2025-02-01 01:17] LABS: Blood Morphology Comment NOT SEEN (NOT SEEN); Platelet Estimate ADEQ; White Blood Cell Scan OK (OK)
[2025-02-01] MEDS ORDERED: DICYCLOMINE HCL 10 MG CAP ONE (01:55)
[2025-02-01] MEDS ORDERED: ONDANSETRON 4 MG/2 ML VIAL ONE (01:55)
[2025-02-01] MEDS ORDERED: DIPHENOX/ATROP SULF 1 TAB PO ONE (01:56)
--- NOTE | 2025-02-01 02:00 | ER ---
Nurse's Notes [facility] Name: Samara Alex Age: 59 yrs Sex: Female : 1965 Arrival Date: 01/31/2025 Time: 22:50 Bed 4 Private MD: Diagnosis: Acute Gastroenteritis, Acute diarrheal illness Presentation: 01/31 23:10 Chief complaint: Patient states: HAS BEEN HAVING VOMITING AND DIARRHEA AFTER TAKING A jj7 DOSE OF AMOXICILLIN FOR A FINGER INFECTION. GENERALIZED ABD PAIN AND CRAMPING. Coronavirus screen: At this time, the client does not indicate any symptoms associated with coronavirus-19. Ebola Screen: No symptoms or risks identified at this time. Initial Sepsis Screen: Does the patient meet any 2 criteria? No. Patient's initial sepsis screen is negative. Does the patient have a suspected source of infection? No. Patient's initial sepsis screen is negative. Risk Assessment: Do you want to hurt yourself or someone else? Patient reports no desire to harm self or others. Onset of symptoms was January 31, 2025. 23:10 Method Of Arrival: Wheelchair jj7 23:10 Acuity: LOVELY 3 jj7 Triage Assessment: 23:13 General: Appears in no apparent distress. uncomfortable, Behavior is calm, cooperative, jj7 appropriate for age. Pain: Complains of pain in abdomen. GI: Pt is actively vomiting bile, Reports lower abdominal pain, upper abdominal pain, cramping, diarrhea, nausea, vomiting. Historical: - Allergies: 23:12 Amoxicillin; jj7 - PMHx: 23:12 Hypertensive disorder; jj7 - PSHx: 23:12 hysterectomy; jj7 23:13 NECK; LEFT KNEE REPLACEMENT; LEFT FINGER; jj7 - Immunization history:: Adult Immunizations not up to date, Client reports receiving the 2nd dose of the Covid vaccine, Flu vaccine is not up to date. - Infectious Disease History:: Denies. - Social history:: Smoking status: Patient denies any tobacco usage or history of. Patient/guardian denies using alcohol, street drugs, IV drugs. Screenin:30 [facility] ED Fall Risk Assessment (Adult) History of falling in the last 3 months, bm8 including since admission No falls in past 3 months (0 pts) Confusion or Disorientation No (0 pts) Intoxicated or Sedated No (0 pts) Impaired Gait No (0 pts) Mobility Assist Device Used No (0 pt) Altered Elimination No (0 pt) Score/Fall Risk Level 0 - 2 = Low Risk Oriented to surroundings, Maintained a safe environment, Educated pt \T\ family on fall prevention, incl call for assistance when getting out of bed, Assessed \T\ reinforced patient's understanding of fall precautions, Hourly rounding (assess needs \T\ fall precautionary measures) done, Used ambulatory aids as needed (educated on \T\ assisted with), Used gait belt as appropriate. Abuse screen: Denies threats or abuse. Nutritional screening: No deficits noted. Tuberculosis screening: No symptoms or risk factors identified. Assessment: 23:29 General: Appears in no apparent distress. uncomfortable, Behavior is calm, cooperative, bm8 appropriate for age. 23:30 Pain: Complains of pain in abdomen Pain currently is 7 out of 10 on a pain scale. bm8 Neuro: Level of Consciousness is awake, alert, obeys commands, Oriented to person, place, time, situation, Appropriate for age. Cardiovascular: Denies chest pain, Capillary refill < 3 seconds in bilateral fingers Patient's skin is warm and dry. Respiratory: Airway is patent Trachea midline Respiratory effort is even, unlabored, Respiratory pattern is regular, symmetrical, Breath sounds are clear bilaterally. GI: Abdomen is flat, non-distended, Last BM at 20:00. Bowel sounds hyperactive in right upper quadrant, left upper quadrant, right lower quadrant and left lower quadrant Abdomen is tender to palpation X 4 quads. Reports lower abdominal pain, upper abdominal pain, diarrhea, intolerance of fluids, intolerance of food, nausea, Pain is 7 out of 10 on a pain scale. vomiting. : No signs and/or symptoms were reported regarding the genitourinary system. EENT: No signs and/or symptoms were reported regarding the EENT system. Derm: No signs and/or symptoms reported regarding the dermatologic system. Musculoskeletal: No signs and/or symptoms reported regarding the musculoskeletal system. 02/01 00:56 Reassessment: Patient appears in no apparent distress at this time. Patient and/or bm8 family updated on plan of care and expected duration. Pain level reassessed. Patient is alert, oriented x 3, equal unlabored respirations, skin warm/dry/pink. Patient states feeling better. Patient states symptoms have improved. Pain: Pain currently is 2 out of 10 on a pain scale. GI: Patient currently denies nausea, at this time. 02:16 Reassessment: Patient appears in no apparent distress at this time. Patient and/or bm8 family updated on plan of care and expected duration. Pain level reassessed. Patient is alert, oriented x 3, equal unlabored respirations, skin warm/dry/pink. Patient denies pain at this time. Patient states feeling better. Patient states symptoms have improved. Vital Signs: 01/31 23:10 BP 145 / 88; Pulse 69; Resp 20; Pulse Ox 99% ; Weight 83.91 kg; Height 5 ft. 10 in. ; jj7 23:30 BP 122 / 77; Pulse 75; Resp 19; Temp 98.5; Pulse Ox 100% ; Pain 7/10; bm8 02/01 00:56 BP 147 / 68; Pulse 91; Resp 18; Temp 98.5; Pulse Ox 100% ; Pain 2/10; bm8 02:16 BP 133 / 79; Pulse 90; Resp 18; Temp 98.5; Pulse Ox 100% ; Pain 0/10; bm8 01/31 23:10 Body Mass Index 26.54 (83.91 kg, 177.8 cm) jj7 23:30 Pain Scale: Adult bm8 02/01 00:56 Pain Scale: Adult bm8 02:16 Pain Scale: Adult bm8 Shane Coma Score: 01/31 23:30 Eye Response: spontaneous(4). Motor Response: obeys commands(6). Verbal Response: bm8 oriented(5). Total: 15. 02/01 00:56 Eye Response: spontaneous(4). Motor Response: obeys commands(6). Verbal Response: bm8 oriented(5). Total: 15. 02:16 Eye Response: spontaneous(4). Motor Response: obeys commands(6). Verbal Response: bm8 oriented(5). Total: 15. ED Course: 01/31 22:52 Patient arrived in ED. im 23:03 Jose R Ch[facility]vez [facility]-C [facility]. dr5 23:03 Sandro Christiansen MD is Attending Physician. dr5 23:12 Triage completed. jj7 23:13 Arm band placed on right wrist. Patient placed in an exam room, on a stretcher. jj7 23:29 Clemente Coffman, RN is Primary Nurse. bm8 23:30 Patient has correct armband on for positive identification. Bed in low position. Call bm8 light in reach. Side rails up X 1. Adult w/ patient. Client placed on continuous cardiac and pulse oximetry monitoring. NIBP monitoring applied. Pulse ox on. NIBP on. Door closed. Noise minimized. Warm blanket given. Pillow given. Verbal reassurance given. Head of bed elevated. 23:30 No provider procedures requiring assistance completed. Initial lab(s) drawn, by , pablo sent to lab. Inserted saline lock: 20 gauge in right antecubital area, using aseptic technique. Blood collected. Flushed with 10 mL NS. Patient maintains SpO2 saturation greater than 95% on room air. 02/01 01:02 CT Abd/Pelvis - IV Contrast Only In Process Unspecified. EDMS 02:16 Provided Education on: post er care. bm8 02:16 IV discontinued, intact, bleeding controlled, No redness/swelling at site. Pressure bm8 dressing applied. Administered Medications: 01/31 23:24 Drug: Ondansetron IVP 4 mg IVP once; over 2 minutes Route: IVP; Site: right antecubital;bm8 02/01 00:28 Follow up: Response: No adverse reaction rg5 01/31 23:24 Drug: morphine IVP or IV 4 mg IVP once over 4 mins Route: IVP; Infused Over: 4 mins; bm8 Site: right antecubital; 02/01 00:00 Follow up: Response: No adverse reaction; Pain is decreased rg5 01/31 23:24 Drug: NS 0.9% IV 1000 ml IV at 1 bolus Per protocol; to be given as a bolus over 60 bm8 minutes Route: IV; Rate: 1 bolus; Site: right antecubital; 02/01 00:28 Follow up: IV Status: Completed infusion; IV Intake: 1000ml rg5 00:27 Drug: Promethazine IVP 25 mg IVP once Route: IVP; Site: right antecubital; rg5 00:51 Follow up: Response: No adverse reaction; Pain is decreased rg5 00:28 Drug: morphine IVP or IV 4 mg IVP once over 4 mins Route: IVP; Infused Over: 4 mins; rg5 Site: right antecubital; 00:51 Follow up: Response: No adverse reaction; Pain is decreased rg5 00:51 Drug: Cyclobenzaprine PO 10 mg PO once Route: PO; rg5 00:57 Follow up: Response: No adverse reaction bm8 02:00 Drug: Ondansetron IVP 4 mg IVP once; over 2 minutes Route: IVP; Site: right antecubital;bm8 02:16 Follow up: Response: No adverse reaction bm8 02:00 Drug: Dicyclomine PO 20 mg PO once Route: PO; bm8 02:16 Follow up: Response: No adverse reaction bm8 02:00 Drug: Diphenoxylate-Atropine PO 2 tabs PO once Route: PO; bm8 02:16 Follow up: Response: No adverse reaction bm8 Medication: 01/31 23:30 VIS not applicable for this client. bm8 Intake: 02/01 00:28 IV: 1000ml; Total: 1000ml. rg5 Outcome: 01:59 Discharge ordered by . sp4 02:16 Discharged to home ambulatory, with family, bm8 02:16 Condition: improved 02:16 Discharge instructions given to patient, Instructed on discharge instructions, follow up and referral plans. no drinking with medication, no driving heavy equipment, medication usage, safety practices, Demonstrated understanding of instructions, follow-up care, medications, Prescriptions given X 4, 02:18 Patient left the ED. bm8 Signatures: Dispatcher [employer] EDMS Radha Naranjo RN RN jj7 Potepalov, Sergey, MD MD sp4 Yesi Obrien Brad RN ANA bm8 Rene Hassan RN RN rg5 Jose R Chávez, DIE TRIPPER-C DIE TRIPPER-Cdr5 Corrections: (The following items were deleted from the chart) 01/31 23:14 23:12 PSHx: LEFT KNEE REPLACEMENT (hysterectomy); jj7 jj7 23:14 23:12 PSHx: LEFT FINGER (hysterectomy); jj7 jj7 23:14 23:12 PSHx: NECK (hysterectomy); jj7 jj7 23:31 23:29 General: Appears in no apparent distress. uncomfortable, Behavior is calm, bm8 cooperative, appropriate for age, bm8 23:31 23:29 Pain: Complains of pain in abdomen Pain bm8 bm8
--- NOTE | 2025-02-01 02:00 | EDPHYS ---
Physician Documentation [facility] Name: Samara Alex Age: 59 yrs Sex: Female : 1965 Arrival Date: 01/31/2025 Time: 22:50 Bed 4 Private MD: ED Physician Sandro Christiansen HPI: 02/01 00:45 This 59 yrs old Female presents to ER via Wheelchair with complaints of dr5 Vomiting/Diarrhea. 00:45 The patient presents to the emergency department with nausea, that is moderate, dr5 vomiting, 6 times today. Onset: The symptoms/episode began/occurred acutely. Possible causes: antibiotics, penicillin, amoxicillin. Patient is a 59-year-old female with history of hypertension coming in with umbilical abdominal pain with associated nausea and vomiting that started today. Patient reports that she went to the doctor and was prescribed amoxicillin in which symptoms started afterwards. Pt denies fever.. Historical: - Allergies: 01/31 23:12 Amoxicillin; jj7 - PMHx: 23:12 Hypertensive disorder; jj7 - PSHx: 23:12 hysterectomy; jj7 23:13 NECK; LEFT KNEE REPLACEMENT; LEFT FINGER; jj7 - Immunization history:: Adult Immunizations not up to date, Client reports receiving the 2nd dose of the Covid vaccine, Flu vaccine is not up to date. - Infectious Disease History:: Denies. - Social history:: Smoking status: Patient denies any tobacco usage or history of. Patient/guardian denies using alcohol, street drugs, IV drugs. ROS: 02/01 00:45 Constitutional: as per hpi dr5 Exam: 00:45 Constitutional: This is a well developed, well nourished patient who is awake, alert, dr5 and in no acute distress. Head/Face: Normocephalic, atraumatic. ENT: Nares patent. No nasal discharge, no septal abnormalities noted. Tympanic membranes are normal and external auditory canals are clear. Oropharynx with no redness, swelling, or masses, exudates, or evidence of obstruction, uvula midline. Mucous membranes moist. Neck: Trachea midline, no thyromegaly or masses palpated, and no cervical lymphadenopathy. Supple, full range of motion without nuchal rigidity, or vertebral point tenderness. No Meningismus. Chest/axilla: Normal chest wall appearance and motion. Nontender with no deformity. No lesions are appreciated. Cardiovascular: Regular rate and rhythm with a normal S1 and S2. Normal PMI, no JVD. No pulse deficits. Respiratory: Lungs have equal breath sounds bilaterally, clear to auscultation. No rales, rhonchi or wheezes noted. No increased work of breathing, no retractions or nasal flaring. Back: No spinal tenderness. No costovertebral tenderness. Full range of motion. Skin: Warm, dry with normal turgor. Normal color with no rashes, no lesions, and no evidence of cellulitis. Neuro: Awake and alert, GCS 15, oriented to person, place, time, and situation. Cranial nerves II-XII grossly intact. Motor strength 5/5 in all extremities. Sensory grossly intact. Cerebellar exam normal. Normal gait. 00:45 Abdomen/GI: Inspection: abdomen appears normal, Bowel sounds: normal, Palpation: moderate abdominal tenderness, in the right lower quadrant and left lower quadrant, Vital Signs: 01/31 23:10 BP 145 / 88; Pulse 69; Resp 20; Pulse Ox 99% ; Weight 83.91 kg; Height 5 ft. 10 in. ; [facility] 23:30 BP 122 / 77; Pulse 75; Resp 19; Temp 98.5; Pulse Ox 100% ; Pain 7/10; bm8 02/01 00:56 BP 147 / 68; Pulse 91; Resp 18; Temp 98.5; Pulse Ox 100% ; Pain 2/10; bm8 02:16 BP 133 / 79; Pulse 90; Resp 18; Temp 98.5; Pulse Ox 100% ; Pain 0/10; bm8 01/31 23:10 Body Mass Index 26.54 (83.91 kg, 177.8 cm) [facility] 23:30 Pain Scale: Adult bm8 02/01 00:56 Pain Scale: Adult bm8 02:16 Pain Scale: Adult bm8 Nebo Coma Score: 01/31 23:30 Eye Response: spontaneous(4). Motor Response: obeys commands(6). Verbal Response: bm8 oriented(5). Total: 15. 02/01 00:56 Eye Response: spontaneous(4). Motor Response: obeys commands(6). Verbal Response: bm8 oriented(5). Total: 15. 02:16 Eye Response: spontaneous(4). Motor Response: obeys commands(6). Verbal Response: bm8 oriented(5). Total: 15. MDM: 01/31 23:03 Medical Screening Exam initiated dr5 02/01 01:13 Differential diagnosis: Nonspecific abd pain, gastritis, appendicitis, diverticulitis, dr5 gastroenteritis. Data reviewed: vital signs, nurses notes. I considered the following discharge prescriptions or medication management in the emergency department Medications were administered in the Emergency Department. See MAR. Care significantly affected by the following chronic conditions: Hypertension. Care significantly affected by the following Social Determinants of Health: Poor access to healthcare and/or lack of insurance, Poor access to transportation, Problems related to employment. Counseling: I had a detailed discussion with the patient and/or guardian regarding. Transition of care: After a detail discussion of the patient's case, care is transferred to Sandro Christiansen MD. ED course: Checked on patient. Patient's nausea has resolved and initially was feeling much better. Patient reports that she has neck pain and back pain consistent with muscle spasm and is requesting muscle lectures to go home with. Currently pending CT abdomen pelvis results.. 01:44 ED course: TECHNIQUE: CT of the abdomen and pelvis [with] intravenous contrast. All CT sp4 scans at this facility use dose modulation, iterative reconstruction, and/or weight based dosing when appropriate to reduce radiation dose to as low as reasonably achievable. COMPARISON: None. FINDINGS: Lower thorax: Bibasilar atelectasis. Abdomen: Stomach:Within normal limits Liver:No focal lesions. No intrahepatic ductal distention. Gallbladder:Surgically absent. Pancreas:Within normal limits Spleen:Within normal limits Right kidney:No hydronephrosis. Renal cyst noted. 5 mm renal stone. Left kidney:No hydronephrosis. 2 mm renal stone. Adrenal glands:Within normal limits Vascular structures:Atherosclerosis of the abdominal aorta and major branches. Nodes:No lymphadenopathy by size criteria Pelvis: Small bowel:No significant distention. Fluid-filled contents. Appendix:Within normal limits Colon:No distention or acute pericolonic edema. Fluid-filled contents. Peritoneum: No free intraperitoneal fluid or air. Bones: No acute bone findings. Surgical fixation changes of the right sacroiliac joint. Bladder: Unremarkable. Reproductive organs: No acute findings. IMPRESSION: 1. Fluid-filled small and large bowel contents, can be seen in setting of diarrheal illness. 2. Bilateral nephrolithiasis. No hydronephrosis. . 01/31 23:08 Order name: CBC with Diff; Complete Time: 01:18 dr5 01/31 23:08 Order name: CMP; Complete Time: 00:13 dr5 01/31 23:08 Order name: Lipase; Complete Time: 00:13 dr5 02/01 00:14 Order name: Blood Culture Adult (2) dr5 02/01 00:14 Order name: Lactate w/ 2H reflex if indic.; Complete Time: 01:08 dr5 02/01 01:17 Order name: CBC Smear Scan; Complete Time: 01:18 EDMS 01/31 23:12 Order name: CT Abd/Pelvis - IV Contrast Only dr5 01/31 23:08 Order name: IV Saline Lock; Complete Time: 23:11 dr5 01/31 23:08 Order name: Labs collected and sent; Complete Time: 23:12 [facility] Administered Medications: 01/31 23:24 Drug: Ondansetron IVP 4 mg IVP once; over 2 minutes Route: IVP; Site: right antecubital;bm8 02/01 00:28 Follow up: Response: No adverse reaction rg5 01/31 23:24 Drug: morphine IVP or IV 4 mg IVP once over 4 mins Route: IVP; Infused Over: 4 mins; bm8 Site: right antecubital; 02/01 00:00 Follow up: Response: No adverse reaction; Pain is decreased rg5 01/31 23:24 Drug: NS 0.9% IV 1000 ml IV at 1 bolus Per protocol; to be given as a bolus over 60 bm8 minutes Route: IV; Rate: 1 bolus; Site: right antecubital; 02/01 00:28 Follow up: IV Status: Completed infusion; IV Intake: 1000ml rg5 00:27 Drug: Promethazine IVP 25 mg IVP once Route: IVP; Site: right antecubital; rg5 00:51 Follow up: Response: No adverse reaction; Pain is decreased rg5 00:28 Drug: morphine IVP or IV 4 mg IVP once over 4 mins Route: IVP; Infused Over: 4 mins; rg5 Site: right antecubital; 00:51 Follow up: Response: No adverse reaction; Pain is decreased rg5 00:51 Drug: Cyclobenzaprine PO 10 mg PO once Route: PO; rg5 00:57 Follow up: Response: No adverse reaction bm8 02:00 Drug: Ondansetron IVP 4 mg IVP once; over 2 minutes Route: IVP; Site: right antecubital;bm8 02:16 Follow up: Response: No adverse reaction bm8 02:00 Drug: Dicyclomine PO 20 mg PO once Route: PO; bm8 02:16 Follow up: Response: No adverse reaction bm8 02:00 Drug: Diphenoxylate-Atropine PO 2 tabs PO once Route: PO; bm8 02:16 Follow up: Response: No adverse reaction bm8 Disposition: 01:53 Co-signature as Attending Physician, Sandro Christiansen MD I agree with the assessment sp4 and plan of care. I reviewed the patient's care provided by Advanced Practice Provider \T\ agree w/ the diagnosis \T\ care plan. I personally saw the pt \T\ performed a substantive portion of the visit, incldng all aspects of the (History/Exam/Medical Decision Making). Disposition Summary: 02/01/25 01:59 Discharge Ordered Notes: Location: Home sp4 Problem: new sp4 Symptoms: have improved sp4 Condition: Stable sp4 Diagnosis - Acute Gastroenteritis, Acute diarrheal illness sp4 Followup: sp4 - With: Private Physician - When: 7 - 10 days - Reason: Recheck today's complaints Discharge Instructions: - Clear Liquid Diet, Adult, [id number] sp4 - Discharge Summary Sheet dr5 Forms: - Patient Portal Instructions sp4 Prescriptions: - Zofran 4 mg Oral tablet - take 1 tablet ORAL route every 6 hours As needed; 30 tablet; Refills: 0, sp4 Product Selection Permitted - Lomotil 2.5-0.025 mg Oral tablet - take 1 tablet ORAL route every 6 hours As needed PRN diarrhea; 30 tablet; sp4 Refills: 0, Product Selection Permitted - dicyclomine 20 mg Oral tablet - take 1 tablet ORAL route 4 times per day PRN abdominal cramps; 30 tablet; sp4 Refills: 0, Product Selection Permitted - Cyclobenzaprine 10 mg Oral Tablet - take 1 tablet ORAL route every 8 hours As needed; 30 tablet; Refills: 0, dr5 Product Selection Permitted Signatures: Dispatcher [employer] Radha Stover RN RN jj7 Sandro Christiansen MD MD sp4 Clemente Coffman, RN RN bm8 Rene Hassan, RN RN rg5 Jose R Chávez, MECHANICAL MAINTENANCE SUPERVISOR-C MECHANICAL MAINTENANCE SUPERVISOR-Cdr5 Corrections: (The following items were deleted from the chart) 01/31 23:08 23:08 CBC+H.LAB.BRZ ordered. EDMS EDMS 23:08 23:08 COMPREHENSIVE METABOLIC PANEL+C.LAB.BRZ ordered. EDMS EDMS 23:08 23:08 LIPASE+C.LAB.BRZ ordered. EDMS EDMS 23:14 23:12 PSHx: LEFT KNEE REPLACEMENT (hysterectomy); jj7 jj7 23:14 23:12 PSHx: LEFT FINGER (hysterectomy); jj7 jj7 23:14 23:12 PSHx: NECK (hysterectomy); jj7 jj7 02/01 00:15 00:15 BLOOD CULTURE*+BA.LAB.BRZ ordered. EDMS EDMS 00:15 00:15 LACTATE+C.LAB.BRZ ordered. EDMS EDMS 00:15 00:15 Urinalysis+U.LAB.BRZ ordered. EDMS EDMS
[2025-02-01 02:27] VITALS: TEMP 98.5; O2SAT 100
[2025-02-01 02:30] VITALS: BP 133/79
--- NOTE | 2025-02-01 03:05 | RAD REPORT ---
EXAM DESCRIPTION: Abdomen Pelvis W Contrast RadLex: CT ABDOMEN PELVIS WITH IV CONTRAST CLINICAL HISTORY: 59 years Female; ABD PAIN; IV ONLY Bed Name: 4 TECHNIQUE: CT of the abdomen and pelvis [with] intravenous contrast. All CT scans at this facility use dose modulation, iterative reconstruction, and/or weight based dosi ng when appropriate to reduce radiation dose to as low as reasonably achievable. COMPARISON: None. FINDINGS: Lower thorax: Bibasilar atelectasis. Abdomen: Stomach: Within normal limits Liver: No focal lesions. No intrahepatic ductal distention. Gallbladder: Surgically absent. Pancreas: Within normal limits Spleen: Within normal limits Right kidney: No hydronephrosis. Renal cyst noted. 5 mm renal stone. Left kidney: No hydronephrosis. 2 mm renal stone. Adrenal glands: Within normal limits Vascular structures: Atherosclerosis of the abdominal aorta and major branches. Nodes: No lymphadenopathy by size criteria Pelvis: Small bowel: No significant distention. Fluid-filled contents. Appendix: Within normal limits Colon: No distention or acute pericolonic edema. Fluid-filled contents. Peritoneum: No free intraperitoneal fluid or air. Bones: No acute bone findings. Surgical fixation changes of the right sacroiliac joint. Bladder: Unremarkable. Reproductive organs: No acute findings. IMPRESSION: 1. Fluid-filled small and large bowel contents, can be seen in setting of diarrheal illness. 2. Bilateral nephrolithiasis. No hydronephrosis. Electronically signed by: Lorie King MD 02/01/2025 01:37 AM CDT TYG Due to temporary technical issues with the PACS/Bromium reporting system, reports are being miri d by the in-house radiologist without review as a courtesy to ensure prompt reporting the interpreting radiologist is fully responsible for the content of the report. Transcribed Date/Time: 02/01/2025 3:05 AM
== END 2025-02-01 02:18 | disposition home or self-care (01) ==
LOC: ER 22:50
DX: K52.9 Noninfective gastroenteritis and colitis, unspecified (principal)
CPT/HCPCS: 96361; 87040 ×2; 85025; 36415; 83605; 83690; 80053; 74177; 96375; 96374; 99284; Q9967; J2550; J2405 ×2; J7030